=== PATIENT | male | born 1950 | race Caucasian/White ===

== ENCOUNTER → 2017-12-29 10:13 | Outpatient (CLI) | payer OTHER, SELFPAY ==
[2017-12-29 11:34] LABS: BUN Creatinine Ratio 17.5 (6-22); Calcium 8.8 mg/dL (8.4-10.2); Estimated Glomerular Filt Rate > 60.0 mL/min (>60); Glucose 160 mg/dL (80-110); HEMOLYSIS < 15 (0-50); Potassium 4.1 mmol/L (3.4-5.1); Sodium 144 mmol/L (137-145)
== END ==
PROVIDERS: PCP Family Medicine; Visit Provider Specialist
DX: N28.9 Disorder of kidney and ureter, unspecified (principal)
CPT/HCPCS: 36415; 80048

== ENCOUNTER → 2018-01-04 09:59 | Outpatient (CLI) | payer OTHER, SELFPAY ==
--- NOTE | 2018-01-04 | DI.US.S_ITS ---
PROCEDURE: US ARTERIAL DUPLEX UE LT COMPARISON: None. INDICATIONS: ischemic cardiomyopathy FINDINGS: Left subclavian artery shows triphasic 123 cm/s flow and the left axillary artery shows biphasic 104 cm/s flow. The left mid brachial artery shows triphasic 122 cm/s flow and the left distal ulnar artery shows biphasic 32 cm/s flow. The left distal radial artery is not identified. No arterial stenosis is found. IMPRESSION: Nonvisualization of the left distal radial artery. No significant stenosis in the remaining arterial vasculature visualized and discussed above. Dictated by: Josue Varghese M.D. on 01/04/2018 at 14:37 Approved by: Josue Varghese M.D. on 01/04/2018 at 14:40
--- NOTE | 2018-01-04 | DI.US.S_ITS ---
PROCEDURE: US ARTERIAL DUPLEX LE BI INDICATIONS: ischemic cardiomyopathy TECHNIQUE: Color and pulse Doppler interrogation was performed of both lower extremity arterial systems, with image documentation. COMPARISON: [facility] Ul[facility]ound, US, US ARTERY LEG DPLX ILIAC BILAT, 10/09/2015, 10:17. FINDINGS: Right lower extremity: Common femoral artery: 142 cm/sec, with monophasic flow. Deep femoral artery: 122 cm/sec, with monophasic flow. Proximal superficial femoral artery: 126 cm/sec, with monophasic flow. Mid superficial femoral artery: 159 cm/sec, with monophasic flow. Distal superficial femoral artery: 127 cm/sec, with monophasic flow. Popliteal artery: 84 cm/sec, with biphasic flow. Posterior tibial artery: 41 cm/sec, with monophasic flow. Anterior tibial artery/dorsalis pedis: 33 cm/sec, with reverse monophasic flow. Hendrix-scale imaging description: Scattered dense plaque Left lower extremity: Common femoral artery: 240 cm/sec, with biphasic flow. Deep femoral artery: 153 cm/sec, with biphasic flow. Proximal superficial femoral artery: 143 cm/sec, with triphasic flow. Mid superficial femoral artery: 164 cm/sec, with biphasic flow. Distal superficial femoral artery: 146 cm/sec, with biphasic flow. Popliteal artery: 84 cm/sec, with triphasic flow. Posterior tibial artery: 25 cm/sec, with monophasic flow. Anterior tibial artery/dorsalis pedis: 75 cm/sec, with monophasic flow. Hendrix-scale imaging description: Scattered dense plaque IMPRESSION: 1. Monophasic waveforms throughout the right lower extremity raises possibility of more proximal lesion. 2. Reversal of blood flow is noted in the distal right anterior tibial artery. 3. Monophasic waveforms in the runoff vessels of the left leg. 4. Diffusely heavy plaque formation both lower extremities. No focal high grade stenosis identified. Dictated by: Torsten Lerner M.D. on 01/04/2018 at 13:02 Approved by: Torsten Lerner M.D. on 01/04/2018 at 13:09
--- NOTE | 2018-01-05 19:20 | DI.NM.S_ITS ---
DATE OF SERVICE: 01/04/2018 PROCEDURE: Pharmacological perfusion study. INDICATION: Congestive heart failure with ischemic cardiomyopathy, known history of coronary artery disease, bypass surgery, PAD. RADIOPHARMACEUTICAL: 25.6 mCi technetium-99m Myoview IV was injected at stress, and 27.2 mCi technetium-99m Myoview IV was injected at rest. CARDIAC STRESS: Patient underwent IV Lexiscan perfusion study under the supervision of an attending staff as per standard protocol. Patient remained hemodynamically stable. No significant symptoms were reported. Baseline rhythm was sinus with up to [address] depression in inferior leads and lead V3 to V6. Patient also has frequent PVCs with ventricular couplets at rest. During stress, PVCs disappeared. No new significant changes. In recovery, occasional PVCs seen as well. RAW DATA: There appears to be increased subdiaphragmatic activity. GATED STUDY: Resting LV ejection fraction 41%. Stress LV ejection fraction 56%. During stress, I don't see any obvious wall motion abnormalities. Resting end-diastolic volume 136 mL. No transient ischemic dilatation. TID ratio 0.97, which is within normal limits. Lung/heart ratio 0.35, which is within normal limits. MYOCARDIAL PERFUSION: Stress supine, resting supine, and stress prone images were compared to each other. Stress supine and resting supine images revealed small- to moderate-sized mild to moderately decreased perfusion of inferior wall and inferior apex, which got significantly improved during prone images. However, prone images remain to have mildly decreased perfusion of inferior apex. I don't see any reversible ischemia. CONCLUSION: 1. No obvious reversible ischemia. 2. Stress and resting supine images revealed mild to moderately decreased perfusion of inferior wall and inferior apex, which got significantly improved during prone images. Prone images remain to have mildly decreased perfusion of inferior apex. There is a possibility of persistent tissue attenuation artifact; however, cannot rule out the possibility of small inferoapical infarction. Patient had perfusion study in March 2012. At that time also, patient had apical perfusion defect which was kind of fixed. There was no significant reversible perfusion defect at that time. At that time, resting LV ejection fraction was 57 and stress LV ejection fraction 58%. Resting end- diastolic volume 115 mL. In this study, resting end-diastolic volume has increased from 115 mL to 136 mL, and resting LV ejection fraction decreased from 57% to 41%; however, stress LV ejection fraction 56%. Frequent PVCs including ventricular couplets at rest which got suppressed during Lexiscan infusion. Dar Perazaen - ANN/natalie/supriya doc#: [id number]/job#: [id number] dd: 01/05/2018 12:29:00 dt: 01/05/2018 19:12:00 DICTATING /COPIES TO: Greta Montes MD COPIES MNE: HERRERA
== END ==
PROVIDERS: PCP Family Medicine; Visit Provider Specialist
DX: I25.5 Ischemic cardiomyopathy (principal); I50.9 Heart failure, unspecified; I25.10 Atherosclerotic heart disease of native coronary artery without angina pectoris; Z95.1 Presence of aortocoronary bypass graft; I73.9 Peripheral vascular disease, unspecified
CPT/HCPCS: 78452; 93016; 93017; 93018; 93925; 93931; A9502; J2785

== ENCOUNTER → 2018-01-05 09:57 | Outpatient (CLI) | payer OTHER, SELFPAY ==
--- NOTE | 2018-01-05 | DI.US.S_ITS ---
PROCEDURE: US RETRO PERITONEAL LIMITED INDICATIONS: PERIPHERAL ARTERY DISEASE TECHNIQUE: Real time scanning was performed of the aorta and iliac arteries, with image documentation. COMPARISON: [facility], US, ABDOMEN COMPLETE, 06/25/2015, 8:01. FINDINGS: Aorta: Proximal aortic diameter measures 1.8 cm. Mid-aorta measures 1 6 cm. Distal aortic diameter is 1.6 cm. Vascular calcifications indicate atherosclerosis. Iliac arteries: Right common iliac artery measures 1.0 cm. Left common iliac artery measures 1.0 cm. IMPRESSION: No abdominal aortic or proximal common iliac artery aneurysm. Dictated by: Ghassan DIAMOND Interpreted: Anamika Negron MD on 01/05/2018 at 10:52 Approved by: Anamika Negron M.D. on 01/05/2018 at 16:54
== END ==
PROVIDERS: PCP Family Medicine; Visit Provider Specialist
DX: I73.9 Peripheral vascular disease, unspecified (principal)
CPT/HCPCS: 76775

== ENCOUNTER → 2018-02-06 10:39 | Outpatient (CLI) | payer OTHER, SELFPAY ==
[2018-02-06 12:39] LABS: Hemoglobin A1C% w Est Avg Glu 6.2 % (4.0-6.0)
== END ==
PROVIDERS: PCP Family Medicine; Visit Provider Family Medicine
DX: E11.9 Type 2 diabetes mellitus without complications (principal)
CPT/HCPCS: 36415; 83036

== ENCOUNTER → 2018-06-28 08:59 | Outpatient (CLI) | payer OTHER, SELFPAY ==
[2018-06-28 10:03] LABS: Alanine Aminotransferase 26 IU/L (21-72); Albumin Globulin Ratio 1.3 (1.0-2.8); Alkaline Phosphatase 115 U/L (38-126); Aspartate Aminotransferase 18 IU/L (17-59); BUN Creatinine Ratio 16.9 (6-22); Bilirubin Total 0.6 mg/dL (0.2-1.3); Blood Urea Nitrogen 22 mg/dL (9-20); Calcium 8.8 mg/dL (8.4-10.2); Carbon Dioxide 22 mmol/L (22-32); Chloride 107 mmol/L (98-107); Estimated Glomerular Filt Rate 54.7 mL/min (>60); Glucose 161 mg/dL (80-110); HEMOLYSIS < 15 (0-50); Potassium 4.5 mmol/L (3.4-5.1); Sodium 144 mmol/L (137-145)
[2018-07-03 13:12] LABS: Lipoprofile NMR SEE SEPERATE REPORT
== END ==
PROVIDERS: PCP Family Medicine; Visit Provider Specialist
DX: I25.5 Ischemic cardiomyopathy (principal); E78.2 Mixed hyperlipidemia; I10 Essential (primary) hypertension; I49.3 Ventricular premature depolarization; I50.22 Chronic systolic (congestive) heart failure
CPT/HCPCS: 36415; 80053; 83704; 83735; 83880

== ENCOUNTER → 2019-04-19 09:31 | Outpatient (CLI) | payer OTHER, SELFPAY ==
[2019-04-19 10:25] LABS: Alanine Aminotransferase 28 IU/L (21-72); Albumin 3.9 g/dL (3.5-5.0); Albumin Globulin Ratio 1.2 (1.0-2.8); Alkaline Phosphatase 129 U/L (38-126); Aspartate Aminotransferase 26 IU/L (17-59); BUN Creatinine Ratio 11.8 (6-22); Bilirubin Total 0.9 mg/dL (0.2-1.3); Blood Urea Nitrogen 13 mg/dL (9-20); Calcium 8.8 mg/dL (8.4-10.2); Carbon Dioxide 25 mmol/L (22-32); Chloride 104 mmol/L (98-107); Cholesterol 104 mg/dL (140-199); Estimated Glomerular Filt Rate > 60.0 mL/min (>60); Globulin 3.2 g/dL (1.7-4.1); Glucose 150 mg/dL (80-110); HDL Cholesterol 32 mg/dL (40-60); HEMOLYSIS < 15 (0-50); LDL Cholesterol Calculated 41 mg/dL (<100); Magnesium 1.9 mg/dL (1.6-2.3); Potassium 4.2 mmol/L (3.4-5.1); Sodium 140 mmol/L (137-145); Total Protein 7.1 g/dL (6.3-8.2); Triglycerides 154 mg/dL (35-150)
== END ==
PROVIDERS: PCP Family Medicine; Visit Provider Specialist
DX: E78.2 Mixed hyperlipidemia (principal); I10 Essential (primary) hypertension; I49.3 Ventricular premature depolarization
CPT/HCPCS: 36415; 80053; 80061; 83735

== ENCOUNTER → 2019-05-28 10:49 | Outpatient (CLI) | payer OTHER, SELFPAY ==
[2019-05-28 12:20] LABS: Hemoglobin A1C% w Est Avg Glu 6.2 % (4.0-6.0)
[2019-05-28 15:15] LABS: Creatinine Urine Random 137.9 mg/dL
[2019-05-28 15:19] LABS: Microalbumi Creatinin Ratio Ur 17.4 ug/mg CR (<30); Microalbumin Urine Random 2.4 mg/dL (0-1.6)
== END ==
PROVIDERS: PCP Family Medicine; Visit Provider Family Medicine
DX: E11.9 Type 2 diabetes mellitus without complications (principal)
CPT/HCPCS: 36415; 82043; 82570; 83036

== ENCOUNTER 2019-10-16 16:42 | Emergency (ER) | payer OTHER, SELFPAY ==
[2019-10-16 17:02] VITALS: BP 114/56; PULSE 56; RESP 13; TEMP 35.9; O2SAT 97
--- NOTE | 2019-10-16 17:32 | DI.RAD.S_ITS ---
PROCEDURE: XR CHEST 2V INDICATIONS: fatigue, cough, congestion TECHNIQUE: 2 views of the chest were acquired. COMPARISON: [facility], , CHEST 1 VIEW, 03/11/2016, 19:19. FINDINGS: Surgical changes and devices: Multiple median sternotomy wires are intact. Stent device noted in the medial left apex. Lungs and pleura: Patchy opacity noted in the right midlung zone. Remainder of the visualized lungs appear clear. No pleural effusions or pneumothorax. Mediastinum: Mediastinal contours are normal. Heart size is normal. Bones and chest wall: No suspicious bony abnormalities. Soft tissues appear unremarkable. IMPRESSION: Patchy right midlung zone opacity possibly representing early developing airspace disease/pneumonia. Recommend follow up chest radiograph 4-6 weeks after treatment to document resolution of findings and/or return to baseline examination. Dictated by: Elroy Cervantes M.D. on 10/16/2019 at 18:17 Approved by: Elroy Cervantes M.D. on 10/16/2019 at 18:18
[2019-10-16 18:13] LABS: Add Manual Diff / Slide Review NO; Basophils Absolute Auto 200 /uL (0-100); Basophils Percent Auto 1.2 % (0-2); Eosinophils Absolute Auto 100 /uL (0-450); Hematocrit 48.7 % (41-53); Hemoglobin 16.6 g/dL (13.5-17.5); Lymphocytes Absolute Auto 2600 /uL (1100-4500); Lymphocytes Percent Auto 19.2 % (25-40); Mean Corpuscular HGB Conc 34.1 % (30-36); Mean Corpuscular Hemoglobin 30.5 PG (26-34); Mean Corpuscular Volume 89.4 fL (80-100); Monocytes Absolute Auto 1100 /uL (0-900); Monocytes Percent Auto 7.6 % (3-14); Neutrophils Absolute Auto 9800 /uL (1500-7000); Platelet Count 280 X10^3/uL (150-400); Red Blood Cell Count 5.45 X10^6/uL (4.5-5.9); Red Cell Distribution Width 14.2 % (11.6-14.8); White Blood Cell Count 13.8 X10^3/uL (4.5-11.0)
--- NOTE | 2019-10-16 18:24 | ED.WEAKNESS ---
HPI - Weakness <JOHN Woody - Last Filed: 10/16/19 21:31> General Chief complaint: Weakness Stated complaint: not felt well for 17 days Time Seen by Provider: 10/16/19 17:10 Source: patient Mode of arrival: Ambulatory Limitations: no limitations History of Present Illness HPI Narrative: This is a 69 year-old male, some day smoker, who presents to ED with his son with chief complain of right ear pain and right-sided sore throat for 17 days. Son states he is not wanting to see doctors and is stubborn. Patient reports he had moist cough which is actually improving at this time. Patient denies fever, chills, nausea or vomiting. Patient reports has been hydrating with about a gallon water a day but he has decreased appetite for solid foods and food does not taste good for last 3 days. Patient states no stool for last 3 days. Patient denies chest pain, short of breath and reports difficulty sleeping at night from coughing and congestion. Patient had pneumonia about a year ago. Patient denies exposure to illness, recent foreign travel, and did not receive flu immunization this year. Related Data Home Medications Medication Instructions Recorded Confirmed amlodipine 5 mg PO QAM 10/16/19 10/16/19 carvedilol 25 mg PO BID 10/16/19 10/16/19 clopidogrel 75 mg PO QPM 10/16/19 10/16/19 lisinopril 20 mg PO BID 10/16/19 10/16/19 rosuvastatin 20 mg PO DAILY 10/16/19 10/16/19 Previous Rx's Medication Instructions Recorded azithromycin 250 mg PO DAILY 5 Days #6 tab 10/16/19 Allergies Allergy/AdvReac Type Severity Reaction Status Date / Time No Known Drug Allergies Allergy Verified 10/16/19 17:11 Review of Systems <JOHN Woody - Last Filed: 10/16/19 21:31> Review of Systems Narrative: General: Denies fever, chills, fatigue, (+) malaise, sweats. HEENT: Denies sinus pain, (+) Right ear pain, (+) Right side sore throat, difficulty swallowing, dizziness. Respiratory: Denies dyspnea, (+) moist cough, wheezing, hemoptysis, sputum. Cardiovascular: Denies chest pain, palpitations, orthopnea, edema. Gastrointestinal: Denies nausea, vomiting, abdominal pain, diarrhea, constipation, melena. : Denies dysuria, frequency, incontinence, hematuria, urinary retention. Musculoskeletal: Denies weakness, joint pain or bony pain. Skin: Denies rash, skin lesions, or other. Neurologic: Denies weakness, headache, numbness, change in speech, confusion, seizures, incoordination. Psychiatric: No concerning psychosocial issues. 12-point review of systems is negative except for those stated above. Patient History <JOHN Woody - Last Filed: 10/16/19 21:31> Medical History (Updated 10/16/19 @ 21:12 by JOHN Woody) Carotid artery narrowing (Acute) Hyperlipidemia (Acute) Hypertension (Acute) Pneumonia (Acute) Surgical History (Updated 10/16/19 @ 20:03 by JOHN Woody) H/O carotid endarterectomy (Acute) H/O eye surgery (Acute) H/O vasectomy (Acute) History of heart bypass surgery (Acute) Status post coronary artery bypass graft Social History Smoking Status: Current some day smoker Smoking Status: Current every day smoker Substance Use Type: does not use Exam <JOHN Woody - Last Filed: 10/16/19 21:31> Narrative Exam Narrative: GEN: Alert, oriented x 3, thin appearing and in no acute distress. Head: Normal cephalic, atraumatic. No scalp or temporal tenderness, palpable mass or rash. EYES: Pupils, round, and reactive to light and accommodation. Misaligned pupil on left eye. Extraocular muscles are intact bilaterally. There is no subconjunctival hemorrhage, exudate and sclera non-icteric. ENT: Right auditory canals semi occuluded purulent discharge with erythmatous, dull TM. Left tympanic membranes clear. Right Hearing grossly intact. Nose without bleeding, purulent discharge or deviation. Facial sinuses nontender to palpate. Mucous membrane dry, no mucosal lesion. Throat without erythema, tonsillar hypertrophy or exudate but postnasal drips. Uvula in midline, airway patent. Neck: Trachea in midline. No JVD, non-tender without lymphadenopathy. No masses or thyroid megaly. Supple, non-tender and no meningeal signs. CARDIAC: Normal regular rate and rhythm without murmurs, gallops, or rubs. No chest wall tenderness. No peripheral edema, cyanosis or pallor. Capillary refill is less than 2 seconds. RESPIRATORY: Lungs are clear to auscultate bilaterally. No cough, wheezes, rales, or rhonchi. No stridor, respiratory distress, increase work of breathing, or accessary muscle used. ABD: Abdomen soft, nontender and non-distended. No guarding or rebound tenderness to palpate. Bowel sounds are normal in all 4 quadrants. There is no palpable masses or organomegaly. EXT: Full painless ROM of all extremities with no loss of sensation, strength, effusion or edema. SKIN: Warm, dry, normal color for patient. No erythema, lesions or rash over visible areas. BACK: Nontender without deformity or crepitance. No flank tenderness. NEUROLOGICAL: Alert and oriented to place, time and person. Sensation and motor function intact bilaterally. No facial droops, dysphasia. PSYCHIATRIC: Good judgement and reason, without hallucinations, abnormal affect or abnormal behaviors during the examination. Initial Vital Signs Initial Vital Signs: Vital Signs Temperature 96.7 F L 10/16/19 17:02 Pulse Rate 56 L 10/16/19 17:02 Respiratory Rate 13 10/16/19 17:02 Blood Pressure 114/56 L 10/16/19 17:02 Pulse Oximetry 97 10/16/19 17:02 <Supriya Tolliver DO - Last Filed: 10/17/19 03:36> Initial Vital Signs Initial Vital Signs: Vital Signs Temperature 96.7 F L 10/16/19 17:02 Pulse Rate 56 L 10/16/19 17:02 Respiratory Rate 13 10/16/19 17:02 Blood Pressure 114/56 L 10/16/19 17:02 Pulse Oximetry 97 10/16/19 17:02 Scores <JOHN Woody - Last Filed: 10/16/19 21:31> GCS [place] coma scale eye opening: Spontaneous [place] coma scale verbal response: Orientated Eleanor coma scale motor response: Obey commands Eleanor coma scale total score: 15 Course <JOHN Woody - Last Filed: 10/16/19 21:31> Orders Ordered: Discontinued Medications Sodium Chloride (Normal Saline 0.9%) 500 mls @ 1,000 mls/hr IV BOLUS ONE Stop: 10/16/19 18:01 Last Admin: 10/16/19 19:29 Dose: 1,000 mls/hr Documented by: CVANCE Ceftriaxone Sodium/Dextrose (Rocephin) 1 gm in 50 mls @ 100 mls/hr IV NOW ONE Stop: 10/16/19 19:18 Last Admin: 10/16/19 19:29 Dose: 100 mls/hr Documented by: CVANCE Vital Signs Vital signs: Vital Signs - 8 hr 10/16/19 19:42 Temperature 97.5 F L Pulse Rate 53 L Respiratory Rate 16 Blood Pressure [Left Arm] 129/64 <Supriya Tolliver DO - Last Filed: 10/17/19 03:36> Orders Ordered: Discontinued Medications Sodium Chloride (Normal Saline 0.9%) 500 mls @ 1,000 mls/hr IV BOLUS ONE Stop: 10/16/19 18:01 Last Admin: 10/16/19 19:29 Dose: 1,000 mls/hr Documented by: CVANCE Ceftriaxone Sodium/Dextrose (Rocephin) 1 gm in 50 mls @ 100 mls/hr IV NOW ONE Stop: 10/16/19 19:18 Last Admin: 10/16/19 19:29 Dose: 100 mls/hr Documented by: CVANCE Vital Signs Vital signs: Vital Signs - 8 hr 10/16/19 19:42 Temperature 97.5 F L Pulse Rate 53 L Respiratory Rate 16 Blood Pressure [Left Arm] 129/64 MDM - Weakness <JOHN Woody - Last Filed: 10/16/19 21:31> Differential Diagnosis Differential diagnosis: Likely anemia, dehydration and other (Electrolyte imbalance, pneumonia, strep throat, UR infection) Medical Records Attestation: I reviewed the patient's medical records. Lab Data Attestation: I reviewed the patient's lab results. Result diagrams: 10/16/19 18:00 10/16/19 18:00 Labs: Lab Results 10/16/19 10/16/19 Range/Units 18:00 18:00 WBC 13.8 H (4.5-11.0) X10^3/uL RBC 5.45 (4.5-5.9) X10^6/uL Hgb 16.6 (13.5-17.5) g/dL Hct 48.7 (41-53) % MCV 89.4 (80-100) fL MCH 30.5 (26-34) PG MCHC 34.1 (30-36) % RDW 14.2 (11.6-14.8) % Plt Count 280 (150-400) X10^3/uL Neut % (Auto) 71.0 (50-75) % Lymph % (Auto) 19.2 L (25-40) % [place] % (Auto) 7.6 (3-14) % Eos % (Auto) 1.0 L (2-4) % Baso % (Auto) 1.2 (0-2) % Neut # (Auto) 9800 H (5385-0771) /uL Lymph # (Auto) 2600 (5031-6906) /uL [place] # (Auto) 1100 H (0-900) /uL Eos # (Auto) 100 (0-450) /uL Baso # (Auto) 200 H (0-100) /uL Sodium 136 L (137-145) mmol/L Potassium 5.1 (3.4-5.1) mmol/L Chloride 101 (98-107) mmol/L Carbon Dioxide 21 L (22-32) mmol/L BUN 49 H (9-20) mg/dL Creatinine 1.55 H (0.66-1.25) mg/dL Estimated GFR 44.5 L (>60) mL/min BUN/Creatinine Ratio 31.6 H (6-22) Glucose 159 H (80-110) mg/dL Calcium 9.0 (8.4-10.2) mg/dL Total Bilirubin 1.4 H (0.2-1.3) mg/dL AST 26 (17-59) IU/L ALT 16 (<50) IU/L Alkaline Phosphatase 102 (38-126) U/L Total Protein 8.3 H (6.3-8.2) g/dL Albumin 4.2 (3.5-5.0) g/dL Globulin 4.1 (1.7-4.1) g/dL Albumin/Globulin Ratio 1.0 (1.0-2.8) Point of Care Testing Rapid Strep A Negative Urine Dip Bedside Urine Glucose 100 mg/dl Bedside Urine Bilirubin - Negative Bedside Urine Ketone - Negative Urine Specific [place] 1.030 Bedside Urine Occult Blood - Negative Bedside Urine pH 5.5 Bedside Urine Protein +/- 15 Bedside Urine Urobilinogen - Negative Bedside Urine Nitrite - Negative Bedside Urine Leukocytes - Negative Esterase Imaging Data Chest x-ray: Radiologist Impression: [place] [id number] [place] [id number] XRay Report Signed Patient: Frankie Peraza [facility]#: [id number] : 9Acct:[id number] Age/Sex: 69 / MDate of Service: 10/16/19 Loc: ED Accession Number: [id number] Procedure: XR chest 2V Ordering Provider: Lonnie Ruiz PROCEDURE: XR CHEST 2V INDICATIONS: fatigue, cough, congestion TECHNIQUE: 2 views of the chest were acquired. COMPARISON: [facility], CHEST 1 VIEW, 03/11/2016, 19:19. FINDINGS: Surgical changes and devices: Multiple median sternotomy wires are intact. Stent device noted in the medial left apex. Lungs and pleura: Patchy opacity noted in the right midlung zone. Remainder of the visualized lungs appear clear. No pleural effusions or pneumothorax. Mediastinum: Mediastinal contours are normal. Heart size is normal. Bones and chest wall: No suspicious bony abnormalities. Soft tissues appear unremarkable. IMPRESSION: Patchy right midlung zone opacity possibly representing early developing airspace disease/pneumonia. Recommend follow up chest radiograph 4-6 weeks after treatment to document resolution of findings and/or return to baseline examination. Dictated by: Elroy Cervantes M.D. on 10/16/2019 at 18:17 Approved by: Elroy Cervantes M.D. on 10/16/2019 at 18:18 [facility] Narrative Medical decision making narrative: This is a 69-year-old male who presents to ED with son with chief complain of right side ear pain, sore throat, cough without chest pain, breathing difficulty. Patient denies fever, chills, nausea or vomiting but has decreased appetite for solid foods for last 3 days. Patient had mildly elevated white count of 13.8 with neutrophils# [id number]. Sodium was mildly decreased to 136. Chemistry test exhibits dehydration. BUN is a 49 and BUN/Cr ratio of 31.6. The patient's baseline creatinine level in the past for 1.3 and today it has increased to 1.55. Likely this is due to patient's dehydration status. Patient has elevated blood glucose of 159. Strep throat swab was negative. Chest x-ray shows patchy opacity noted in the right mid lung zone representing early developing airspace disease/pneumonia. Patient's physical exam showed postnasal drips with right ear injection, purulent discharge consistent with otitis media. Patient was hydrated with normal saline 500 mL and administered Rocephin 1 g IV while in ED. patient was able to tolerate fluids without nausea or vomiting. Patient discharged to home with azithromycin 5 day course to cover pneumonia and ear infection and to hydrate adequately. Patient advised to follow up with PCP in 24 hour period to have kidney function test recheck it. Strict return precautions were discussed with the patient and patient verbalized understanding and in agreement with the treatment plan. <Supriya Tolliver, DO - Last Filed: 10/17/19 03:36> Lab Data Labs: Lab Results 10/16/19 10/16/19 Range/Units 18:00 18:00 WBC 13.8 H (4.5-11.0) X10^3/uL RBC 5.45 (4.5-5.9) X10^6/uL Hgb 16.6 (13.5-17.5) g/dL Hct 48.7 (41-53) % MCV 89.4 (80-100) fL MCH 30.5 (26-34) PG MCHC 34.1 (30-36) % RDW 14.2 (11.6-14.8) % Plt Count 280 (150-400) X10^3/uL Neut % (Auto) 71.0 (50-75) % Lymph % (Auto) 19.2 L (25-40) % [place] % (Auto) 7.6 (3-14) % Eos % (Auto) 1.0 L (2-4) % Baso % (Auto) 1.2 (0-2) % Neut # (Auto) 9800 H (3686-4816) /uL Lymph # (Auto) 2600 (5643-1140) /uL [place] # (Auto) 1100 H (0-900) /uL Eos # (Auto) 100 (0-450) /uL Baso # (Auto) 200 H (0-100) /uL Sodium 136 L (137-145) mmol/L Potassium 5.1 (3.4-5.1) mmol/L Chloride 101 (98-107) mmol/L Carbon Dioxide 21 L (22-32) mmol/L BUN 49 H (9-20) mg/dL Creatinine 1.55 H (0.66-1.25) mg/dL Estimated GFR 44.5 L (>60) mL/min BUN/Creatinine Ratio 31.6 H (6-22) Glucose 159 H (80-110) mg/dL Calcium 9.0 (8.4-10.2) mg/dL Total Bilirubin 1.4 H (0.2-1.3) mg/dL AST 26 (17-59) IU/L ALT 16 (<50) IU/L Alkaline Phosphatase 102 (38-126) U/L Total Protein 8.3 H (6.3-8.2) g/dL Albumin 4.2 (3.5-5.0) g/dL Globulin 4.1 (1.7-4.1) g/dL Albumin/Globulin Ratio 1.0 (1.0-2.8) Point of Care Testing Rapid Strep A Negative Urine Dip Bedside Urine Glucose 100 mg/dl Bedside Urine Bilirubin - Negative Bedside Urine Ketone - Negative Urine Specific [place] 1.030 Bedside Urine Occult Blood - Negative Bedside Urine pH 5.5 Bedside Urine Protein +/- 15 Bedside Urine Urobilinogen - Negative Bedside Urine Nitrite - Negative Bedside Urine Leukocytes - Negative Esterase Discharge Plan Departure Patient Disposition: Home Clinical Impression: Dehydration, Acute kidney injury Pneumonia Qualifiers: Pneumonia type: due to unspecified organism Laterality: right Lung location: middle lobe of lung Qualified Code(s): J18.9 - Pneumonia, unspecified organism Otitis media Qualifiers: Otitis media type: unspecified Laterality: right Qualified Code(s): H66.91 - Otitis media, unspecified, right ear Discharge Date/Time: 10/16/19 21:40 Instructions: DI for Dehydration -- Adult, DI for Pneumonia -- Adult, DI for Middle Ear Infection-Adult, DI for Acute Kidney Injury Activity Restrictions/Additional Instructions: You have been diagnosed with [chest x-ray shows in right midlung zone patchy opacity. Physical exam on right ear indicates ear infection. White count of 13.8. Chemistry test indicates you were dehydrated. Your hydrated with IV fluid of normal saline while in ED and medicated with Rocephin IV for antibiotic medication. Your kidney function has decreased as compared with previous blood tests. Please follow-up with your doctor in 24 hour period for recheck on kidney function test. BUN is 49, Creatine 1.55, GFR of 44.5, and elevated glucose of 159. Strep throat test was negative and urine test indicates no infection.]. What to do: *Take your medications as directed. Please start on your antibiotic medication tomorrow 2 tabs 1st day and 1 tab daily from day 2-5. You can take Tylenol if you have fever or discomfort. Please increases hydration. Eat something is a to digest even though you may not have much appetite. Antibiotic medication has been transmitted to [employer] in [facility]. *Follow up with your primary care provider in 2-3 days, call for an appointment. Let them know you were seen in the ED and that we asked you to be seen in follow up. *Return to ED if you have any new, worsening, or concerning symptoms, such as [chest pain, breathing difficulty, unable to tolerate fluids, high fever, or any acute concerns]. Prescriptions: New azithromycin 250 mg tablet 250 mg PO DAILY 5 Days Qty: 6 RF: 0 No Action carvedilol 25 mg tablet 25 mg PO BID RF: 0 lisinopril 20 mg tablet 20 mg PO BID RF: 0 clopidogrel 75 mg tablet 75 mg PO QPM RF: 0 amlodipine 5 mg Tablet 5 mg PO QAM RF: 0 rosuvastatin 20 mg tablet 20 mg PO DAILY RF: 0 Referrals: Finesse Levine MD [Primary Care Provider] -
[2019-10-16 18:32] LABS: Alanine Aminotransferase 16 IU/L (<50); Albumin 4.2 g/dL (3.5-5.0); Alkaline Phosphatase 102 U/L (38-126); Aspartate Aminotransferase 26 IU/L (17-59); BUN Creatinine Ratio 31.6 (6-22); Bilirubin Total 1.4 mg/dL (0.2-1.3); Blood Urea Nitrogen 49 mg/dL (9-20); Carbon Dioxide 21 mmol/L (22-32); Chloride 101 mmol/L (98-107); Estimated Glomerular Filt Rate 44.5 mL/min (>60); Globulin 4.1 g/dL (1.7-4.1); Glucose 159 mg/dL (80-110); Sodium 136 mmol/L (137-145); Total Protein 8.3 g/dL (6.3-8.2)
[2019-10-16 18:33] LABS: HEMOLYSIS 87 (0-50); Potassium 5.1 mmol/L (3.4-5.1)
[2019-10-16] MEDS: SODIUM CHLORIDE 0.9% 500 ML 1000 ML IV (19:29)
[2019-10-16] MEDS: CEFTRIAXONE 1 GM/50 ML FROZ.PIGGY IV (19:29)
[2019-10-16 19:42] VITALS: BP 129/64; PULSE 53; RESP 16; TEMP 36.4
--- NOTE | 2019-11-21 10:46 | PC.NURSE ---
ON 10/15 Rocephin antibiotic started at 18:49 and stopped at 1919 50cc infused. Also on 10/15 Normal saline IV started at 17:32 and finished at 1810 for a total of 500cc infusion
== END 2019-10-16 21:40 | disposition home or self-care (01) ==
PROVIDERS: Emergency Provider Nurse Practitioner Family; PCP Family Medicine; Referring Provider Family Medicine
DX: E86.0 Dehydration (principal); N17.9 Acute kidney failure, unspecified; J18.9 Pneumonia, unspecified organism; H66.91 Otitis media, unspecified, right ear
CPT/HCPCS: 71046; 80053; 81003; 85025; 87880; 96361; 96365; 99283; 99284

== ENCOUNTER → 2019-10-22 14:21 | Outpatient (CLI) | payer OTHER, SELFPAY ==
[2019-10-22 15:29] LABS: Add Manual Diff / Slide Review NO; Basophils Absolute Auto 100 /uL (0-100); Basophils Percent Auto 0.4 % (0-2); Eosinophils Absolute Auto 100 /uL (0-450); Eosinophils Percent Auto 0.8 % (2-4); Hematocrit 47.5 % (41-53); Lymphocytes Absolute Auto 2900 /uL (1100-4500); Lymphocytes Percent Auto 20.2 % (25-40); Mean Corpuscular HGB Conc 33.8 % (30-36); Mean Corpuscular Hemoglobin 30.3 PG (26-34); Mean Corpuscular Volume 89.7 fL (80-100); Monocytes Absolute Auto 1000 /uL (0-900); Monocytes Percent Auto 6.8 % (3-14); Neutrophils Absolute Auto 10300 /uL (1500-7000); Neutrophils Percent Auto 71.8 % (50-75); Platelet Count 373 X10^3/uL (150-400); Red Cell Distribution Width 14.1 % (11.6-14.8); White Blood Cell Count 14.3 X10^3/uL (4.5-11.0)
[2019-10-22 15:45] LABS: BUN Creatinine Ratio 25.3 (6-22); Blood Urea Nitrogen 39 mg/dL (9-20); Calcium 9.3 mg/dL (8.4-10.2); Carbon Dioxide 19 mmol/L (22-32); Chloride 100 mmol/L (98-107); Estimated Glomerular Filt Rate 44.9 mL/min (>60); Glucose 155 mg/dL (80-110); HEMOLYSIS < 15 (0-50); Potassium 4.9 mmol/L (3.4-5.1); Sodium 132 mmol/L (137-145)
== END ==
PROVIDERS: PCP Family Medicine; Referring Provider Family Medicine; Visit Provider Family Medicine
DX: I10 Essential (primary) hypertension (principal); E11.9 Type 2 diabetes mellitus without complications
CPT/HCPCS: 36415; 80048; 85025

== ENCOUNTER → 2019-10-23 17:15 | Outpatient (CLI) | payer OTHER, SELFPAY ==
--- NOTE | 2019-10-23 | DI.RAD.S_ITS ---
PROCEDURE: XR CHEST 2V INDICATIONS: Right middle lobe pneumonia TECHNIQUE: 2 views of the chest were acquired. COMPARISON: [facility], [place], CHEST 1 VIEW, 03/11/2016, 19:19. [facility], [place], XR CHEST 2V, 10/16/2019, 17:35. FINDINGS: Surgical changes and devices: Sternal wires consistent with prior bypass procedure. Lungs and pleura: Unchanged opacity overlying the right middle lobe, unchanged. No pleural effusions or pneumothorax. Mediastinum: Mediastinal contours are normal. Heart size is enlarged. Bones and chest wall: No suspicious bony abnormalities. Soft tissues appear unremarkable. IMPRESSION: Unchanged right middle lobe opacity. While this could be reflective of inflammatory etiology, recommend interval followup to document resolution and exclude presence of potentially underlying neoplastic mass. Dictated by: Luann Nagel M.D. on 10/24/2019 at 9:23 Approved by: Luann Nagel M.D. on 10/24/2019 at 9:28
== END ==
PROVIDERS: PCP Family Medicine; Referring Provider Family Medicine; Visit Provider Family Medicine
DX: J18.1 Lobar pneumonia, unspecified organism (principal)
CPT/HCPCS: 71046

== ENCOUNTER 2020-05-29 21:19 | Emergency (ER) | payer OTHER, SELFPAY ==
[2020-05-29 21:35] VITALS: BP 189/96; PULSE 82; RESP 16; TEMP 36.6; O2SAT 97; BMI 25.8
[2020-05-29 21:45] LABS: Appearance Urine UA CLEAR; Bilirubin Urine UA 1+ (NEGATIVE); Color Urine UA YELLOW; Glucose Urine UA NEGATIVE (Negative); Ketones Urine UA TRACE (NEGATIVE); Leukocyte Esterase Urine UA NEGATIVE (NEGATIVE); Nitrite Urine UA NEGATIVE (Negative); Occult Blood Urine UA TRACE-LYSED (Negative); Protein Urine UA 1+ (Negative); Specific Gravity Urine UA >=1.030 (1.000-1.035); Urobilinogen Urine UA 0.2 E.U./dL (0.2)
--- NOTE | 2020-05-29 21:47 | ED_ITS ---
HPI - Abdominal Pain General Chief Complaint: Abdominal Pain Stated Complaint: abdominal and back pain Time Seen by Provider: 05/29/20 21:22 Source: patient Mode of arrival: Ambulatory Limitations: no limitations History of Present Illness HPI narrative: 70M smoker with history of HTN, PAD, hyperlipidemia and prior inguinal hernia repair presents with the chief complaint of abdominal pain, nausea, and malaise for the past 3-4 days. His pain comes in waves without obvious provocation or palliation, but he does admit it radiates to his back. He has frequent urination. He denies testicular pain, but admits swelling since a difficult course after inguinal hernia repair. He's had no fever, chills, or vomiting. He does feel nauseated. MD complaint: abdominal pain Onset (ago): day(s) Pain Consistency: intermittent Location: periumbilical Severity: moderate Quality: cramping Radiation: back Relieving factors: nothing Exacerbating factors: nothing Associated symptoms: nausea Related Data Home Medications Medication Instructions Recorded Confirmed amlodipine 5 mg PO QAM 10/16/19 10/16/19 carvedilol 25 mg PO BID 10/16/19 10/16/19 clopidogrel 75 mg PO QPM 10/16/19 10/16/19 lisinopril 20 mg PO BID 10/16/19 10/16/19 rosuvastatin 20 mg PO DAILY 10/16/19 10/16/19 Previous Rx's Medication Instructions Recorded ondansetron 4 mg PO TID-QID PRN #10 tab 05/30/20 oxycodone 5 mg PO Q4-6H PRN #10 tab 05/30/20 Allergies Allergy/AdvReac Type Severity Reaction Status Date / Time No Known Drug Allergies Allergy Verified 05/29/20 21:45 Review of Systems Constitutional Constitutional: Denies chills, Denies fatigue, Denies fever(s), Denies frequent falls, Denies lethargy and Denies weakness Eyes Eyes: Denies change in vision, Denies eye discharge, Denies irritation and Denies loss of vision ENT Ears, Nose, Mouth, and Throat: Denies change in voice, Denies dizziness, Denies neck pain, Denies sore throat and Denies throat swelling Cardiovascular Cardiovascular: Denies chest pain, Denies irregular heart rhythm, Denies lightheadedness, Denies palpitations, Denies dyspnea, Denies dyspnea on exertion and Denies orthopnea Respiratory Respiratory: Denies cough, Denies dyspnea, Denies dyspnea on exertion and Denies wheezing Gastrointestinal Gastrointestinal: Reports abdominal pain, Denies change in bowel habits, Denies diarrhea, Reports nausea and Denies vomiting Genitourinary Genitourinary: Reports urinary frequency Genitourinary: Reports urinary frequency Musculoskeletal Musculoskeletal: Denies neck pain and Denies numbness Integumentary/Breasts Skin/Breast: Denies pruritus, Denies erythema, Denies rash and Denies wounds Neurologic Neurologic: Denies behavioral changes, Denies confusion, Denies dizziness, Denies frequent falls, Denies loss of vision, Denies numbness and Denies weakness Psychiatric Psychiatric: Denies anxiety, Denies behavioral changes, Denies confusion, Denies depression, Denies homicidal ideation and Denies suicidal ideation Endocrine Endocrine: Denies fatigue, Denies flushing and Denies palpitations Hematologic/Lymphatic Hematologic/Lymphatic: Denies easy bruising Allergic/Immunologic Allergic/Immunologic: Denies urticaria, Denies throat swelling and Denies wheezing Patient History Medical History Carotid artery narrowing (Acute) Hyperlipidemia (Acute) Hypertension (Acute) Pneumonia (Acute) Surgical History H/O carotid endarterectomy (Acute) H/O eye surgery (Acute) H/O vasectomy (Acute) History of heart bypass surgery (Acute) Status post coronary artery bypass graft Social History Smoking Status: Current some day smoker Smoking Status: Current some day smoker Substance Use Type: does not use Exam Narrative Exam Narrative: GENERAL: [70] year old patient appears stated age. Well- nourished, well-developed patient, in mild distress. HEAD: Atraumatic. Normocephalic. EYES: Pupils equal round and reactive. Extraocular motions intact. No scleral icterus. No injection or drainage. ENT: Nose without bleeding, purulent drainage. Throat without erythema, to nsillar hypertrophy or exudate. Airway patent. NECK: Trachea midline. Non tender CARDIOVASCULAR: Regular rate and rhythm without murmurs, gallops, or rubs. RESPIRATORY: Clear to auscultation. Breath sounds equal bilaterally. No wheezes, rales, or rhonchi. GASTROINTESTINAL: Abdomen soft, moderate tenderness in the periumbilical region, nondistended. Bowel sounds present in all 4 quadrants : No testicular pain, discoloration EXTREMITIES: No edema or joint tenderness. BACK: Nontender without deformity or crepitance. No flank tenderness. NEURO: AOx3. SKIN: No rash or erythema of visible areas Initial Vital Signs Initial Vital Signs: Vital Signs Temperature 97.9 F 05/29/20 21:35 Pulse Rate 82 05/29/20 21:35 Respiratory Rate 16 05/29/20 21:35 Blood Pressure 189/96 H 05/29/20 21:35 Pulse Oximetry 97 05/29/20 21:35 Course Orders Ordered: ED Orders 05/29/20 21:39 Ictotest Urine Stat Urinalysis and Microscopic Stat 05/29/20 21:49 EKG-12 Lead Stat 05/29/20 22:15 Complete Blood Count AUTO DIFF Stat Comprehensive Metabolic Panel Stat Lipase Stat Partial Thromboplastin Time Stat Prothrombin Time INR Stat 05/29/20 23:02 CT abdomen pelvis w con Stat 05/30/20 00:08 Prostate Specific Antigen Stat 05/30/20 23:45 US abdomen limited Stat Discontinued Medications Sodium Chloride (Normal Saline 0.9%) 1,000 mls @ 1,000 mls/hr IV BOLUS ONE Stop: 05/30/20 00:00 Last Infusion: 05/30/20 00:25 Dose: 0 mls/hr Documented by: Admin: 05/29/20 23:16 Dose: 1,000 mls/hr Documented by: SHARONDA Ketorolac Tromethamine (Toradol) 15 mg IV NOW ONE Stop: 05/29/20 23:02 Last Admin: 05/29/20 23:15 Dose: 15 mg Documented by: SHARONDA Lidocaine HCl (Urojet) 5 ml TOP NOW ONE Stop: 05/30/20 01:22 Last Admin: 05/30/20 02:04 Dose: 5 ml Documented by: SHARONDA Ondansetron HCl (Zofran) 4 mg IV Q4HR PRN PRN Reason: Nausea And Vomiting Last Admin: 05/29/20 23:16 Dose: 4 mg Documented by: SHARONDA Oxycodone/Acetaminophen (Endocet 5/325 Prepack) 1 bottle MISC SEEINSTR ONE Stop: 05/30/20 02:08 Last Admin: 05/30/20 02:27 Dose: 1 bottle Documented by: SHARONDA Pantoprazole Sodium (Protonix) 40 mg IV NOW ONE Stop: 05/29/20 23:03 Last Admin: 05/29/20 23:15 Dose: 40 mg Documented by: SHARONDA Prednisone (Deltasone) 40 mg PO NOW ONE Stop: 05/29/20 23:02 Last Admin: 05/29/20 23:14 Dose: Not Given Documented by: SHARONDA Consultations Consultation #1: upon completion of evaluation, call placed to public information specialist urology at (Dr. Galindo) to discuss CT findings, enlarged prostate infiltrating bladder and post void residual >300. She states no contraindication to use of smith. Recommends pain control and follow up with local urology. Vital Signs Vital signs: Vital Signs - 8 hr 05/29/20 21:35 05/30/20 02:29 05/30/20 02:30 Temperature 97.9 F Pulse Rate 82 88 87 Respiratory Rate 16 Blood Pressure 189/96 H 175/81 H Pulse Oximetry 97 94 97 05/30/20 02:49 Temperature 98.2 F Pulse Rate Respiratory Rate Blood Pressure Pulse Oximetry MDM - Abdominal Pain Lab Data Result diagrams: 05/29/20 22:15 05/29/20 22:15 Labs: Lab Results 05/29/20 05/29/20 05/29/20 Range/Units 21:39 22:15 22:15 WBC 15.6 H (4.5-11.0) X10^3/uL RBC 4.90 (4.5-5.9) X10^6/uL Hgb 15.3 (13.5-17.5) g/dL Hct 44.6 (41-53) % MCV 91.2 (80-100) fL MCH 31.3 (26-34) PG MCHC 34.3 (30-36) % RDW 15.2 H (11.6-14.8) % Plt Count 198 (150-400) X10^3/uL Neut % (Auto) 76.9 H (50-75) % Lymph % (Auto) 12.4 L (25-40) % [place] % (Auto) 9.5 (3-14) % Eos % (Auto) 0.5 L (2-4) % Baso % (Auto) 0.7 (0-2) % Neut # (Auto) 45885 H (5946-3321) /uL Lymph # (Auto) 1900 (5999-4271) /uL [place] # (Auto) 1500 H (0-900) /uL Eos # (Auto) 100 (0-450) /uL Baso # (Auto) 100 (0-100) /uL PT 12.6 (10.1-12.7) SECONDS INR 1.1 (0.9-1.3) APTT 28 (26.4-36.2) SECONDS Sodium (137-145) mmol/L Potassium (3.4-5.1) mmol/L Chloride (98-107) mmol/L Carbon Dioxide (22-32) mmol/L BUN (9-20) mg/dL Creatinine (0.66-1.25) mg/dL Estimated GFR (>60) mL/min BUN/Creatinine Ratio (6-22) Glucose (80-110) mg/dL Calcium (8.4-10.2) mg/dL Total Bilirubin (0.2-1.3) mg/dL AST (17-59) IU/L ALT (<50) IU/L Alkaline Phosphatase (38-126) U/L Total Protein (6.3-8.2) g/dL Albumin (3.5-5.0) g/dL Globulin (1.7-4.1) g/dL Albumin/Globulin Ratio (1.0-2.8) Lipase (23-300) U/L Prostate Specific Ag (0.10-4.00) ng/mL Urine Color Yellow Urine Appearance Clear Urine pH 5.0 (4.5-8.0) Ur Specific [place] >=1.030 H (1.000-1.035) Urine Protein 1+ H (Negative) Urine Glucose (UA) Negative (Negative) g/dL Urine Ketones Trace H (NEGATIVE) Urine Occult Blood Trace-lysed (Negative) Urine Nitrate Negative (Negative) Urine Bilirubin 1+ H (NEGATIVE) Ur Bilirubin Confirm Negative (Negative) Urine Urobilinogen 0.2 (0.2) E.U./dL Ur Leukocyte Esterase Negative (NEGATIVE) Urine RBC None seen (0-5/HPF) Urine WBC None seen (0-5/HPF) Ur Squamous Epith Cells 0-1 /hpf (0-5/HPF) Urine Bacteria None seen (None) Urine Mucus 1+ H (Negative) Ur Culture Indicated? Cult not indicated Micro UA Comment * 05/29/20 05/29/20 Range/Units 22:15 22:15 WBC (4.5-11.0) X10^3/uL RBC (4.5-5.9) X10^6/uL Hgb (13.5-17.5) g/dL Hct (41-53) % MCV (80-100) fL MCH (26-34) PG MCHC (30-36) % RDW (11.6-14.8) % Plt Count (150-400) X10^3/uL Neut % (Auto) (50-75) % Lymph % (Auto) (25-40) % [place] % (Auto) (3-14) % Eos % (Auto) (2-4) % Baso % (Auto) (0-2) % Neut # (Auto) (4215-7106) /uL Lymph # (Auto) (6819-4778) /uL [place] # (Auto) (0-900) /uL Eos # (Auto) (0-450) /uL Baso # (Auto) (0-100) /uL PT (10.1-12.7) SECONDS INR (0.9-1.3) APTT (26.4-36.2) SECONDS Sodium 135 L (137-145) mmol/L Potassium 4.3 (3.4-5.1) mmol/L Chloride 102 (98-107) mmol/L Carbon Dioxide 27 (22-32) mmol/L BUN 23 H (9-20) mg/dL Creatinine 1.22 (0.66-1.25) mg/dL Estimated GFR 58.6 L (>60) mL/min BUN/Creatinine Ratio 18.9 (6-22) Glucose 190 H (80-110) mg/dL Calcium 8.9 (8.4-10.2) mg/dL Total Bilirubin 1.4 H (0.2-1.3) mg/dL AST 18 (17-59) IU/L ALT 12 (<50) IU/L Alkaline Phosphatase 105 (38-126) U/L Total Protein 7.5 (6.3-8.2) g/dL Albumin 3.9 (3.5-5.0) g/dL Globulin 3.6 (1.7-4.1) g/dL Albumin/Globulin Ratio 1.1 (1.0-2.8) Lipase 66 (23-300) U/L Prostate Specific Ag 1.27 (0.10-4.00) ng/mL Urine Color Urine Appearance Urine pH (4.5-8.0) Ur Specific [place] (1.000-1.035) Urine Protein (Negative) Urine Glucose (UA) (Negative) g/dL Urine Ketones (NEGATIVE) Urine Occult Blood (Negative) Urine Nitrate (Negative) Urine Bilirubin (NEGATIVE) Ur Bilirubin Confirm (Negative) Urine Urobilinogen (0.2) E.U./dL Ur Leukocyte Esterase (NEGATIVE) Urine RBC (0-5/HPF) Urine WBC (0-5/HPF) Ur Squamous Epith Cells (0-5/HPF) Urine Bacteria (None) Urine Mucus (Negative) Ur Culture Indicated? Micro UA Comment Imaging Data CT scan - abdomen/pelvis: Radiologist's Impression: GB distentiion with stones and/or sludge Enlarged prostate with impression or possible invasion of inferior bladder wall Discharge Plan Departure Patient Disposition: Home Clinical Impression: Abdominal pain Qualifiers: Abdominal location: lower abdomen, unspecified Qualified Code(s): R10.30 - Lower abdominal pain, unspecified Discharge Date/Time: 05/30/20 02:53 Instructions: DI for Abdominal Pain-Adult Activity Restrictions/Additional Instructions: *You have been diagnosed with [ abdominal pain, urinary retention ] *What to do: *Take medications as directed *Follow up with urology in 2-3 days, call for an appointment. Let them know you were seen in the Emergency Department and that we ask that you be seen in follow up *Return to ER if you should have any new, worsening or concerning symptoms, such as [worsening pain, fever > 101F, persistent vomiting or other bothersome symptoms Prescriptions: New ondansetron 4 mg tablet,disintegrating 4 mg PO TID-QID PRN (Reason: nausea and vomiting) Qty: 10 RF: 0 oxycodone 5 mg tablet 5 mg PO Q4-6H PRN (Reason: pain) Qty: 10 RF: 0 No Action carvedilol 25 mg tablet 25 mg PO BID RF: 0 lisinopril 20 mg tablet 20 mg PO BID RF: 0 clopidogrel 75 mg tablet 75 mg PO QPM RF: 0 amlodipine 5 mg Tablet 5 mg PO QAM RF: 0 rosuvastatin 20 mg tablet 20 mg PO DAILY RF: 0 Referrals: John Cooley MD [Physician] - Finesse Levine MD [Primary Care Provider] -
[2020-05-29 21:57] LABS: Ictotest Urine Negative (Negative)
[2020-05-29 22:24] LABS: Add Manual Diff / Slide Review NO; Basophils Absolute Auto 100 /uL (0-100); Basophils Percent Auto 0.7 % (0-2); Eosinophils Absolute Auto 100 /uL (0-450); Eosinophils Percent Auto 0.5 % (2-4); Hematocrit 44.6 % (41-53); Hemoglobin 15.3 g/dL (13.5-17.5); Lymphocytes Absolute Auto 1900 /uL (1100-4500); Lymphocytes Percent Auto 12.4 % (25-40); Mean Corpuscular HGB Conc 34.3 % (30-36); Mean Corpuscular Hemoglobin 31.3 PG (26-34); Mean Corpuscular Volume 91.2 fL (80-100); Monocytes Absolute Auto 1500 /uL (0-900); Monocytes Percent Auto 9.5 % (3-14); Neutrophils Absolute Auto 12000 /uL (1500-7000); Neutrophils Percent Auto 76.9 % (50-75); Platelet Count 198 X10^3/uL (150-400); Red Cell Distribution Width 15.2 % (11.6-14.8); White Blood Cell Count 15.6 X10^3/uL (4.5-11.0)
[2020-05-29 22:32] LABS: INR 1.1 (0.9-1.3); Prothrombin Time 12.6 SECONDS (10.1-12.7)
[2020-05-29 22:35] LABS: PTT Partial Thromboplastin Tim 28 SECONDS (26.4-36.2)
[2020-05-29 22:36] LABS: Alanine Aminotransferase 12 IU/L (<50); Albumin 3.9 g/dL (3.5-5.0); Albumin Globulin Ratio 1.1 (1.0-2.8); Alkaline Phosphatase 105 U/L (38-126); Aspartate Aminotransferase 18 IU/L (17-59); BUN Creatinine Ratio 18.9 (6-22); Bilirubin Total 1.4 mg/dL (0.2-1.3); Blood Urea Nitrogen 23 mg/dL (9-20); Calcium 8.9 mg/dL (8.4-10.2); Carbon Dioxide 27 mmol/L (22-32); Chloride 102 mmol/L (98-107); Estimated Glomerular Filt Rate 58.6 mL/min (>60); Globulin 3.6 g/dL (1.7-4.1); Glucose 190 mg/dL (80-110); HEMOLYSIS < 15 (0-50); Lipase 66 U/L (23-300); Potassium 4.3 mmol/L (3.4-5.1); Sodium 135 mmol/L (137-145); Total Protein 7.5 g/dL (6.3-8.2)
[2020-05-29 22:56] LABS: Bacteria Urine None Seen; Mucus Urine 1+ (Negative); Squamous Epithelial Cell Urine 0-1 /HPF (0-5/HPF)
[2020-05-29 22:57] LABS: Culture Indicated Urine Cult Not Indicated; RBC Urine None Seen (0-5/HPF); WBC Urine None Seen (0-5/HPF)
--- NOTE | 2020-05-29 23:02 | DI.CT.S_ITS ---
PROCEDURE: CT ABDOMEN PELVIS W CON INDICATIONS: severe pain, nausea, elevated WBCs TECHNIQUE: After the administration of intravenous contrast, 5 mm thick sections acquired from the diaphragm to the symphysis. 5 mm coronal and sagittal reformats were acquired. For radiation dose reduction, the following was used: automated exposure control, adjustment of mA and/or kV according to patient size. COMPARISON: [facility], CT, ABDOMEN/PELVIS WITH CONTRAST, 02/01/2017, 12:07. FINDINGS: Image quality: Excellent. ABDOMEN: Lung bases: Lung bases are clear. Heart size is enlarged. Small hiatal hernia. Left gynecomastia partially visualized. Well-circumscribed left paramedian subcutaneous cyst measuring of 4.3 x 2.6 cm, (09/18), previously 3.2 x 1.9 cm in 2017. This creates mass effect at the skin. Solid organs: Liver is normal in size. Heterogeneous enhancement in the right and left lobes of the liver. No focal lesion is identified. Gallbladder is mildly distended. Layering density most compatible with gallstones or sludge. The CBD measures 7 mm, similar to the prior exam Pancreas enhances normally. Pancreatic duct is not dilated. Spleen is normal in size and enhancement. No adrenal nodules. Kidneys demonstrate normal size and enhancement, without hydronephrosis. Small cyst in the superior pole of the right kidney. Peritoneum and bowel: Bowel loops demonstrate normal wall thickness and caliber. Diverticulosis. Normal appendix. No free fluid or air. Nodes and vessels: No retroperitoneal or mesenteric adenopathy by size criteria. No abdominal aortic aneurysm. Minimal ectasia. Extensive atherosclerotic plaque. Miscellaneous: No ventral hernias. PELVIS: Genitourinary: Bladder is within normal limits. Prostatomegaly with median lobe hypertrophy. Overall this appears similar to the prior CT from 2017. Large left scrotal cystic structure partially visualized measuring approximately 6.6 x 6.4 cm, (). This likely corresponds to the previously seen spermatocele and appears increased in size. Right the scrotal cystic structure measuring at 3.1 x 2 cm, (), this likely corresponds to the epididymal cyst and may be slightly increased in size. Miscellaneous: No inguinal hernias or adenopathy. Bones: No suspicious bony lesions. L4-L5 anterolisthesis measuring 6 mm. Moderate DDD. No vertebral body compression fractures. IMPRESSION: 1. Distended gallbladder. Gallbladder sludge or stones. Findings could be seen in acute cholecystitis. -recommend further evaluation with abdominal ultrasound. 2. Heterogeneous enhancement in the liver. This could be due to hyperemia possibly due to inflamed gallbladder and/or perfusion abnormality. 3. Left scrotal large spermatocele partially visualized measuring at least 6.6 cm appears increased in size compared to 2017. -consider further evaluation with testicular ultrasound. 4. Prostatomegaly with median lobe hypertrophy appears similar to the prior CT from 2017. -However, if the patient has hematuria consider further evaluation with CT IVP. 5. Left paramedian inferior chest subcutaneous cyst measuring 4.3 cm is increased in size. This most likely represents a sebaceous or epidermal inclusion cyst. No significant discrepancy with the overnight preliminary interpretation. Less suspicious about bladder wall invasion as described in the outside report. Dictated by: Antoine Louise M.D. on 05/30/2020 at 8:04 Approved by: Antoine Louise M.D. on 05/30/2020 at 8:28
[2020-05-29] MEDS: PANTOPRAZOLE 40 MG VIAL IV (23:15)
[2020-05-29] MEDS: KETOROLAC 60 MG/2 ML VIAL 15 MG IV (23:15)
[2020-05-29] MEDS: ONDANSETRON 4 MG/2 ML INJ IV (23:16)
[2020-05-29] MEDS: SODIUM CHLORIDE 0.9% 1,000 ML 1000 ML IV (23:16)
[2020-05-30 00:54] LABS: Prostate Specific Antigen 1.27 ng/mL (0.10-4.00)
[2020-05-30] MEDS: LIDOCAINE 2% (UROJET) 5 ML GEL TOP (02:04)
[2020-05-30] MEDS: OXYCODONE/APAP 5/325 PREPACK 1 BOTTLE MISC (02:27)
[2020-05-30 02:29] VITALS: PULSE 88; O2SAT 94
[2020-05-30 02:30] VITALS: BP 175/81; PULSE 87; O2SAT 97
--- NOTE | 2020-05-30 02:33 | PC.NURSE ---
Patient reports some relief since catheter began draining bladder.
--- NOTE | 2020-05-30 02:40 | PC.NURSE ---
Patient educated on smith care and leg bag care. Declined switching to leg bag in ER, wants to keep overnight bag on.
--- NOTE | 2020-05-30 02:47 | PC.NURSE ---
Patient signed discharge, denied having any questions. Afterwards reports he feels chilled and wants a warm blanket. Provided blanket, patient afebrile 98.2oral. Patient requesting couple mins before discharge.
[2020-05-30 02:49] VITALS: TEMP 36.8
--- NOTE | 2020-05-30 23:45 | DI.US.S_ITS ---
PROCEDURE: US ABDOMEN LIMITED INDICATIONS: ABDOMINAL PAIN, ABNORMAL GB ON CT TECHNIQUE: Real-time scanning was performed of the abdominal and retroperitoneal organs, with image documentation. COMPARISON: [facility], CT, CT ABDOMEN PELVIS W CON, 05/29/2020, 23:02. FINDINGS: Liver: Liver is normal in size and homogeneous in echotexture. Gallbladder: Gallbladder wall is at the upper limits of normal in thickness measuring 3 mm. There is appearance of sludge within the gallbladder lumen. Biliary ducts: Intrahepatic bile ducts are non-dilated. Extrahepatic bile duct caliber measures 7.5 mm. However, it is noted to narrowed near the pancreatic head to 3.3 mm. Normal is 6-7 mm or less in diameter, or 10 mm or less post-cholecystectomy. IMPRESSION: 1. Gallbladder wall thickening with appearance of sludge and mild prominence of the common bile duct. No definitive source of obstruction is identified. Recommend correlation of patient's symptoms as developing cholecystitis cannot be definitively excluded. Further evaluation with CT/MR is recommended for further evaluation, as well as evaluation of ductal prominence. The above findings are concordant with preliminary report. Dictated by: Luann Nagel M.D. on 05/30/2020 at 10:03 Approved by: Luann Nagel M.D. on 05/30/2020 at 10:05
== END 2020-05-30 02:53 | disposition home or self-care (01) ==
PROVIDERS: Emergency Provider Emergency Medicine; PCP Family Medicine
DX: R10.30 Lower abdominal pain, unspecified (principal); R35.0 Frequency of micturition; R33.8 Other retention of urine
CPT/HCPCS: 36415; 51798; 74177; 76705; 80053; 81001; 83690; 84153; 85025; 85610; 85730; 93005; 96361; 96374; 96375; 99284; 99285; C9113; J1885; J2405; Q9967

== ENCOUNTER 2020-06-01 10:35 | Emergency (ER) | payer OTHER, SELFPAY ==
[2020-06-01] VITALS (168 sets, daily range): BP systolic 72–109; BP diastolic 35–74; PULSE 59–70; RESP 17–73; TEMP 35.9–36.6; O2SAT 64–99; BMI 25.9
--- NOTE | 2020-06-01 10:54 | ED_ITS ---
HPI - Weakness General Chief complaint: Weakness Stated complaint: ENLARGED GALL BLADDER, DEHYDRATED, CAN'T STAND Time Seen by Provider: 06/01/20 10:40 Source: patient and family Mode of arrival: Wheelchair Limitations: no limitations History of Present Illness HPI Narrative: This is a 70-year-old male who comes in for increased weakness, concerns for dehydration and feeling generally in worse. Patient was seen here on the with difficulty with urination. He son have an enlarged prostate but also some changes to his gallbladder. Patient since then has had only 800 cc out total over the last 2-3 days. He has noted some dark almost bloody urine from his [place] catheter which was placed in the ER. He has not had any fevers. He has been short of breath him and his family are unclear about whether they think his breathing is significantly worse. He denies any chest pain or pressure, he has had abdominal pain which is why he was here on the which is continued and radiates towards his back and crossed to the left side from the middle. Patient has had nausea and had 1 episode of emesis. He denies any fevers. He is noted to be jaundiced here in the department any there his family nor the patient can not tell me if this is new. Patient has had very minimal stool output with a small pellets of stool x1, he has not appreciated any swelling of his abdomen or extremities. He does have a history of CABG, bilateral lower extremity stents, carotid stent her endarterectomy, vasectomy and takes medication including Plavix, amlodipine, carvedilol and lisinopril. He avoids alcohol, occasional THC but no other illicit. He was a patient of Dr. Anuj jones but is currently in between providers. Patient's son is initially at bedside assisting with history, he states that patient also had COVID like symptoms and pneumonia about 4 months ago and has not truly regained his sense of smell or ever came back to his normal baseline of activity or weight although he did improve. Patient was not tested at the time of his illness. Related Data Home Medications Medication Instructions Recorded Confirmed amlodipine 5 mg PO QAM 10/16/19 10/16/19 carvedilol 25 mg PO BID 10/16/19 10/16/19 clopidogrel 75 mg PO QPM 10/16/19 10/16/19 lisinopril 20 mg PO BID 10/16/19 10/16/19 rosuvastatin 20 mg PO DAILY 10/16/19 10/16/19 Previous Rx's Medication Instructions Recorded ondansetron 4 mg PO TID-QID PRN #10 tab 05/30/20 oxycodone 5 mg PO Q4-6H PRN #10 tab 05/30/20 Allergies Allergy/AdvReac Type Severity Reaction Status Date / Time No Known Drug Allergies Allergy Verified 05/29/20 21:45 Review of Systems Review of Systems ROS Unobtainable: All systems reviewed & are unremarkable except as noted in HPI and below Patient History Medical History (Updated 06/01/20 @ 13:49 by Supriya Tolliver DO) Carotid artery narrowing (Acute) Hyperlipidemia (Acute) Hypertension (Acute) Pneumonia (Acute) Surgical History H/O carotid endarterectomy (Acute) H/O eye surgery (Acute) H/O vasectomy (Acute) History of heart bypass surgery (Acute) Status post coronary artery bypass graft Social History Smoking Status: Current some day smoker Smoking Status: Current some day smoker alcohol intake frequency: holidays/special occasions only Substance Use Type: does not use Exam Narrative Exam Narrative: GEN: Thin male who appears ill, alert and oriented x 3, patient appears to be in moderate distress. Patient is jaundiced. HEENT: Atraumatic, pupils are equal round reactive to light, very light scleral icterus, extraocular movements are intact, nares are clear, TMs are clear with no fluid, there is no conjunctival pallor. Throat is clear without any exudates, erythema, tonsillar enlargement or uvular deviation, dry mucous membranes. HEART: Regular rate and rhythm without murmur, clicks, rubs. Pulses are equal in upper and lower extremities LUNGS:Lungs sounds are equal bilaterally,, no wheezes, rales, crackles, chest moves symmetrically, positive for tachypnea no accessory muscle use. ABD:bowel sounds normal, soft, positive for mid abdominal and epigastric tenderness, no guarding, rebound, rigidity, no masses noted, no hepato splenomegaly :No CVA tenderness, patient has an enlarged left testicle, it is soft with no firm masses noted, unable to palpate any hernias in the right or left inguinal area. MSCL: Non-tender. Normal range of motion of extremities. NEURO:CN 2-12 intact, sensation normal SKIN: see above Initial Vital Signs Initial Vital Signs: Vital Signs Temperature 96.7 F L 06/01/20 10:45 Pulse Rate 66 06/01/20 10:45 Respiratory Rate 22 06/01/20 10:45 Blood Pressure 106/74 06/01/20 10:45 Pulse Oximetry 94 06/01/20 10:45 Procedures Central Line Placement Right IJ: Time Out Performed: Yes Patient Placed on Monitor/Pulse Ox: Yes MD Prep: mask, gown and gloves Central Line Prep: Chlorhexidine scrub and sterile drapes applied Local Anesthetic: lidocaine 1% Amount of anesthesia used (mL): 4 Ultrasound Used for Placement: Yes Central Line Lumen Inserted: triple Post Procedure: sutured in place, good blood return, all ports aspirated, flushed, capped and sterile dressing applied Post Procedure X-Ray: tip of catheter in good position (catheter tip low, pulled back.) and no pneumothorax seen Patient Tolerated Procedure: Well Complications: none Scores GCS [place] coma scale eye opening: Spontaneous Eleanor coma scale verbal response: Orientated Eleanor coma scale motor response: Obey commands Eleanor coma scale total score: 15 Course Orders Ordered: ED Orders 06/01/20 10:54 CT abdomen pelvis wo con Stat XR chest 1V Stat 06/01/20 10:56 Ammonia (NH3) Stat Complete Blood Count AUTO DIFF Stat Comprehensive Metabolic Panel Stat Lactate (Lactic Acid) Stat Lipase Stat Magnesium Stat NT-proBNP (BNP-Adult 18+) Stat Partial Thromboplastin Time Stat Procalcitonin Stat Prothrombin Time INR Stat Troponin & CK Cardiac Panel Stat 06/01/20 11:20 COVID19 -ED/INPAT/OR/L&D Stat 06/01/20 11:37 US abdomen limited Stat 06/01/20 12:02 Ictotest Urine Stat Urinalysis and Microscopic Stat Urine Culture Stat 06/01/20 12:10 Blood Culture Stat 06/01/20 13:36 XR chest 1V Stat 06/01/20 14:22 XR chest 1V Stat Norepinephrine Bitartrate 4 mg (/ Dextrose) 254 mls @ 30.48 mls/hr IV TITRATE BRIAN; Protocol Last Titration: 06/01/20 15:43 Dose: 0 mcg/min, 0 mls/hr Documented by: Titration: 06/01/20 13:52 Dose: 12 mcg/min, 45.72 mls/hr Documented by: Titration: 06/01/20 13:45 Dose: 6 mcg/min, 22.86 mls/hr Documented by: Admin: 06/01/20 13:15 Dose: 2 mcg/min, 7.62 mls/hr Documented by: LOKESH Vasopressin 40 unit/ Sodium (Chloride) 102 mls @ 4.5 mls/hr IV CONT BRIAN Last Infusion: 06/01/20 15:44 Dose: 0 mls/hr Documented by: Admin: 06/01/20 15:09 Dose: 4.5 mls/hr Documented by: LOKESH Lactated Ringer's (Lactated Ringers) 1,000 mls @ 300 mls/hr IV CONT BRIAN Last Infusion: 06/01/20 15:46 Dose: 0 mls/hr Documented by: Admin: 06/01/20 15:33 Dose: 300 mls/hr Documented by: LOKESH Discontinued Medications Fentanyl (Sublimaze) 25 mcg IV NOW ONE Stop: 06/01/20 13:14 Last Admin: 06/01/20 13:17 Dose: 25 mcg Documented by: ELENI Lactated Ringer's (Lactated Ringers) 2,175 mls @ 725 mls/hr 30 ml/kg infuse over 3 hr (2175 ml) IV NOW ONE Stop: 06/01/20 13:56 Last Infusion: 06/01/20 14:40 Dose: 0 mls/hr Documented by: Admin: 06/01/20 11:05 Dose: 725 mls/hr Documented by: LOKESH Piperacillin/Tazobactam/Dextrose (Zosyn) 2.25 gm in 50 mls @ 100 mls/hr IV NOW ONE Stop: 06/01/20 12:14 Last Infusion: 06/01/20 13:05 Dose: 0 mls/hr Documented by: Admin: 06/01/20 12:33 Dose: 100 mls/hr Documented by: LOKESH Calcium Gluconate 4.65 meq/ (Sodium Chloride) 60 mls @ 180 mls/hr IV NOW ONE Stop: 06/01/20 13:01 Last Infusion: 06/01/20 13:45 Dose: 0 mls/hr Documented by: Admin: 06/01/20 13:18 Dose: 180 mls/hr Documented by: LOKESH Sodium Chloride (Normal Saline 0.9%) 500 mls @ 500 mls/hr IV BOLUS ONE Stop: 06/01/20 15:43 Last Admin: 06/01/20 14:48 Dose: Not Given Documented by: LOKESH Lactated Ringer's (Lactated Ringers) 500 mls @ 1,000 mls/hr IV BOLUS ONE Stop: 06/01/20 14:39 Last Infusion: 06/01/20 15:07 Dose: 0 mls/hr Documented by: Admin: 06/01/20 14:10 Dose: 1,000 mls/hr Documented by: LOKESH Reevaluation(s) Reevaluation #1: Discussed with patient his blood pressure has continued to drop, he does appear to be in septic shock, patient also per daughter has a history of dilated cardiomyopathy and is also in acute renal failure making very little urine. We discussed patient does not wish for intubation or CPR, he is willing for pressors and if needed a central line. Discussed at length with the patient and the daughter my concerns and that he is very ill at this time. Time: 12:15 Consultations Consultation #1: Spoke with Dr. Montes and recommends levophed based on patients cardiac history, acute renal failure, fluid overload and sepsis likely secondary to cholangitis, daughter states that he does have a history of dilated cardiomyopathy, we do not have records/ECHO, hold ccb and bb. Time: 12:22 Consultation #2: Spoke with Dr. Del Rio with general surgery, suspects more cholecystitis with severe sepsis over cholangitis based on the bile duct not being dilated but this is not a conclusive diagnosis. She states that this time he would not be a candidate for the OR regardless and she would be willing to watch him here if the hospitalist was comfortable but if they were not she would suggest transfer, fluids and antibiotics. Time: 12:44 Consultation #3: Spoke with Dr. Haley from [place] ICU, discussed patient's recent medical history, labs, EKG findings, imaging and his wishes in terms of POLST status. Plan for transfer to [facility] at this time. Time: 14:30 Vital Signs Vital signs: Vital Signs - 8 hr 06/01/20 10:45 06/01/20 10:48 06/01/20 10:49 Temperature 96.7 F L Pulse Rate 66 64 63 Respiratory Rate 22 48 H 73 H Blood Pressure 106/74 106/55 L Pulse Oximetry 94 64 L 06/01/20 11:00 06/01/20 11:27 06/01/20 11:30 Temperature Pulse Rate 67 65 63 Respiratory Rate 42 H 37 H 39 H Blood Pressure 88/58 L Pulse Oximetry 91 85 L 85 L 06/01/20 11:31 06/01/20 11:36 06/01/20 11:42 Temperature Pulse Rate 62 65 69 Respiratory Rate 36 H 38 H 39 H Blood Pressure 84/52 L 94/53 L 92/50 L Pulse Oximetry 85 L 86 L 86 L 06/01/20 11:45 06/01/20 12:00 06/01/20 12:02 Temperature Pulse Rate 66 63 61 Respiratory Rate 36 H 37 H 38 H Blood Pressure 103/44 L 75/40 L 83/40 L Pulse Oximetry 86 L 85 L 99 06/01/20 12:05 06/01/20 12:09 06/01/20 12:10 Temperature Pulse Rate 66 66 66 Respiratory Rate 40 H 40 H 39 H Blood Pressure 78/55 L 83/67 L Pulse Oximetry 86 L 84 L 06/01/20 12:11 06/01/20 12:15 06/01/20 12:20 Temperature Pulse Rate 66 60 61 Respiratory Rate 35 H 41 H 33 H Blood Pressure 77/47 L 86/42 L 81/42 L Pulse Oximetry 85 L 92 91 06/01/20 12:21 06/01/20 12:22 06/01/20 12:23 Temperature Pulse Rate 66 66 63 Respiratory Rate 33 H 30 H 32 H Blood Pressure Pulse Oximetry 95 90 L 95 06/01/20 12:24 06/01/20 12:25 06/01/20 12:26 Temperature Pulse Rate 68 65 67 Respiratory Rate 34 H 36 H 36 H Blood Pressure 88/49 L Pulse Oximetry 94 88 L 85 L 06/01/20 12:27 06/01/20 12:28 06/01/20 12:29 Temperature Pulse Rate 64 66 69 Respiratory Rate 36 H 36 H 33 H Blood Pressure Pulse Oximetry 82 L 82 L 85 L 06/01/20 12:30 06/01/20 12:31 06/01/20 12:32 Temperature Pulse Rate 66 64 67 Respiratory Rate 33 H 33 H 34 H Blood Pressure 88/53 L Pulse Oximetry 83 L 81 L 81 L 06/01/20 12:33 06/01/20 12:34 06/01/20 12:35 Temperature Pulse Rate 66 61 62 Respiratory Rate 32 H 34 H 32 H Blood Pressure 95/42 L Pulse Oximetry 84 L 82 L 84 L 06/01/20 12:36 06/01/20 12:37 06/01/20 12:38 Temperature Pulse Rate 66 65 65 Respiratory Rate 32 H 32 H 31 H Blood Pressure Pulse Oximetry 83 L 83 L 85 L 06/01/20 12:39 06/01/20 12:40 06/01/20 12:41 Temperature Pulse Rate 61 60 60 Respiratory Rate 27 H 29 H 27 H Blood Pressure 85/40 L Pulse Oximetry 91 83 L 78 L 06/01/20 12:42 06/01/20 12:43 06/01/20 12:44 Temperature Pulse Rate 60 59 L 60 Respiratory Rate 29 H 29 H 29 H Blood Pressure Pulse Oximetry 88 L 85 L 89 L 06/01/20 12:45 06/01/20 12:46 06/01/20 12:47 Temperature Pulse Rate 59 L 60 61 Respiratory Rate 25 H 28 H 27 H Blood Pressure 78/41 L Pulse Oximetry 87 L 87 L 83 L 06/01/20 12:48 06/01/20 12:49 06/01/20 12:50 Temperature Pulse Rate 61 60 59 L Respiratory Rate 28 H 29 H 31 H Blood Pressure 79/43 L 81/42 L Pulse Oximetry 85 L 85 L 88 L 06/01/20 12:51 06/01/20 13:36 06/01/20 13:39 Temperature Pulse Rate 59 L 65 67 Respiratory Rate 31 H 38 H 35 H Blood Pressure 83/45 L Pulse Oximetry 85 L 93 90 L 06/01/20 13:40 06/01/20 13:42 06/01/20 13:43 Temperature Pulse Rate 67 66 66 Respiratory Rate 33 H 34 H 33 H Blood Pressure 85/48 L 83/45 L 74/43 L Pulse Oximetry 90 L 92 91 06/01/20 13:44 06/01/20 13:46 06/01/20 13:50 Temperature Pulse Rate 59 L 67 66 Respiratory Rate 32 H 29 H 25 H Blood Pressure 78/35 L 74/38 L 77/41 L Pulse Oximetry 89 L 89 L 84 L 06/01/20 13:51 06/01/20 13:53 06/01/20 13:54 Temperature Pulse Rate 63 62 65 Respiratory Rate 29 H 26 H 24 Blood Pressure 75/39 L 73/39 L 73/39 L Pulse Oximetry 83 L 93 91 06/01/20 13:55 06/01/20 13:56 06/01/20 13:57 Temperature Pulse Rate 61 65 64 Respiratory Rate 25 H 26 H 23 Blood Pressure 80/44 L 74/42 L 75/41 L Pulse Oximetry 91 91 91 06/01/20 13:58 06/01/20 13:59 06/01/20 14:00 Temperature Pulse Rate 59 L 67 61 Respiratory Rate 23 20 22 Blood Pressure 72/42 L 80/47 L Pulse Oximetry 91 91 91 06/01/20 14:02 06/01/20 14:03 06/01/20 14:04 Temperature Pulse Rate 62 65 65 Respiratory Rate 21 22 23 Blood Pressure 79/45 L 76/45 L 79/45 L Pulse Oximetry 89 L 90 L 89 L 06/01/20 14:05 06/01/20 14:06 06/01/20 14:07 Temperature Pulse Rate 65 65 65 Respiratory Rate 23 18 22 Blood Pressure 81/47 L 79/45 L 75/43 L Pulse Oximetry 90 L 90 L 89 L 06/01/20 14:08 06/01/20 14:10 06/01/20 14:12 Temperature Pulse Rate 63 60 61 Respiratory Rate 18 18 21 Blood Pressure 76/45 L 76/45 L 75/45 L Pulse Oximetry 90 L 89 L 89 L 06/01/20 14:13 06/01/20 14:14 06/01/20 14:15 Temperature Pulse Rate 62 62 65 Respiratory Rate 20 19 19 Blood Pressure 79/42 L 85/46 L Pulse Oximetry 89 L 88 L 88 L 06/01/20 14:16 06/01/20 14:17 06/01/20 14:18 Temperature Pulse Rate 65 66 66 Respiratory Rate 19 19 18 Blood Pressure 81/47 L 81/47 L Pulse Oximetry 89 L 87 L 87 L 06/01/20 14:19 06/01/20 14:20 06/01/20 14:21 Temperature Pulse Rate 65 62 65 Respiratory Rate 22 19 19 Blood Pressure 79/45 L Pulse Oximetry 86 L 90 L 89 L 06/01/20 14:22 06/01/20 14:23 06/01/20 14:24 Temperature Pulse Rate 66 65 66 Respiratory Rate 22 20 21 Blood Pressure 81/45 L 76/43 L Pulse Oximetry 89 L 89 L 89 L 06/01/20 14:25 06/01/20 14:26 06/01/20 14:27 Temperature Pulse Rate 61 66 64 Respiratory Rate 24 20 23 Blood Pressure 78/47 L 85/47 L Pulse Oximetry 91 94 94 06/01/20 14:28 06/01/20 14:29 06/01/20 14:30 Temperature Pulse Rate 65 66 66 Respiratory Rate 23 23 26 H Blood Pressure 85/50 L 83/48 L Pulse Oximetry 94 89 L 92 06/01/20 14:31 06/01/20 14:32 06/01/20 14:33 Temperature Pulse Rate 65 65 65 Respiratory Rate 27 H 23 23 Blood Pressure 81/44 L Pulse Oximetry 92 92 91 06/01/20 14:34 06/01/20 14:35 06/01/20 14:36 Temperature Pulse Rate 66 65 66 Respiratory Rate 21 24 23 Blood Pressure 86/50 L 90/46 L Pulse Oximetry 93 93 91 06/01/20 14:37 06/01/20 14:38 06/01/20 14:39 Temperature Pulse Rate 64 64 68 Respiratory Rate 22 25 H 22 Blood Pressure 79/43 L Pulse Oximetry 91 91 89 L 06/01/20 14:40 06/01/20 14:41 06/01/20 14:42 Temperature Pulse Rate 67 68 67 Respiratory Rate 24 27 H 25 H Blood Pressure 80/50 L 81/42 L Pulse Oximetry 89 L 87 L 87 L 06/01/20 14:43 06/01/20 14:44 06/01/20 14:45 Temperature Pulse Rate 66 67 67 Respiratory Rate 28 H 28 H 25 H Blood Pressure 78/46 L Pulse Oximetry 89 L 92 92 06/01/20 14:46 06/01/20 14:47 06/01/20 14:48 Temperature Pulse Rate 62 66 66 Respiratory Rate 23 22 22 Blood Pressure 82/43 L 80/45 L Pulse Oximetry 92 92 90 L 06/01/20 14:49 06/01/20 14:50 06/01/20 14:51 Temperature Pulse Rate 66 66 66 Respiratory Rate 23 21 24 Blood Pressure 79/45 L Pulse Oximetry 88 L 88 L 85 L 06/01/20 14:52 06/01/20 14:53 06/01/20 14:54 Temperature Pulse Rate 67 60 69 Respiratory Rate 21 22 23 Blood Pressure 79/45 L 84/48 L Pulse Oximetry 85 L 87 L 87 L 06/01/20 14:55 06/01/20 14:56 06/01/20 14:57 Temperature Pulse Rate 68 69 68 Respiratory Rate 22 24 24 Blood Pressure 83/47 L Pulse Oximetry 88 L 90 L 90 L 06/01/20 14:58 06/01/20 14:59 06/01/20 15:00 Temperature Pulse Rate 67 67 67 Respiratory Rate 24 22 22 Blood Pressure 80/46 L 78/45 L Pulse Oximetry 89 L 87 L 85 L 06/01/20 15:01 06/01/20 15:02 06/01/20 15:03 Temperature Pulse Rate 67 66 67 Respiratory Rate 22 24 23 Blood Pressure 79/44 L Pulse Oximetry 84 L 85 L 82 L 06/01/20 15:04 06/01/20 15:05 06/01/20 15:06 Temperature Pulse Rate 67 63 68 Respiratory Rate 24 20 19 Blood Pressure 81/44 L 80/46 L Pulse Oximetry 82 L 88 L 85 L 06/01/20 15:07 06/01/20 15:08 06/01/20 15:09 Temperature Pulse Rate 67 67 67 Respiratory Rate 20 21 20 Blood Pressure 78/45 L Pulse Oximetry 85 L 85 L 86 L 06/01/20 15:10 06/01/20 15:11 06/01/20 15:12 Temperature Pulse Rate 66 67 67 Respiratory Rate 17 18 19 Blood Pressure 77/44 L 73/43 L Pulse Oximetry 84 L 80 L 78 L 06/01/20 15:13 06/01/20 15:14 06/01/20 15:15 Temperature Pulse Rate 68 68 67 Respiratory Rate 20 19 20 Blood Pressure 78/46 L Pulse Oximetry 77 L 77 L 87 L 06/01/20 15:16 06/01/20 15:17 06/01/20 15:18 Temperature Pulse Rate 67 67 67 Respiratory Rate 20 19 20 Blood Pressure 82/49 L 84/51 L Pulse Oximetry 90 L 92 93 06/01/20 15:19 06/01/20 15:20 06/01/20 15:21 Temperature Pulse Rate 67 68 68 Respiratory Rate 21 23 17 Blood Pressure 88/53 L Pulse Oximetry 93 94 95 06/01/20 15:22 06/01/20 15:23 06/01/20 15:24 Temperature Pulse Rate 67 67 65 Respiratory Rate 18 19 27 H Blood Pressure 85/53 L 101/50 L Pulse Oximetry 94 92 90 L 06/01/20 15:25 06/01/20 15:26 06/01/20 15:27 Temperature Pulse Rate 66 66 68 Respiratory Rate 21 22 22 Blood Pressure 95/54 L Pulse Oximetry 89 L 83 L 83 L 06/01/20 15:28 06/01/20 15:29 06/01/20 15:30 Temperature Pulse Rate 67 67 67 Respiratory Rate 25 H 24 26 H Blood Pressure 95/53 L 100/52 L Pulse Oximetry 85 L 88 L 87 L 06/01/20 15:31 06/01/20 15:32 06/01/20 15:33 Temperature Pulse Rate 67 68 63 Respiratory Rate 23 24 24 Blood Pressure 96/53 L Pulse Oximetry 85 L 87 L 85 L 06/01/20 15:34 06/01/20 15:35 06/01/20 15:36 Temperature 97.9 F Pulse Rate 63 63 64 Respiratory Rate 23 23 20 Blood Pressure 90/54 L 94/55 L Pulse Oximetry 85 L 84 L 84 L 06/01/20 15:37 06/01/20 15:38 06/01/20 15:39 Temperature Pulse Rate 63 70 69 Respiratory Rate 19 19 21 Blood Pressure 102/56 L Pulse Oximetry 86 L 86 L 86 L 06/01/20 15:40 06/01/20 15:41 06/01/20 15:42 Temperature Pulse Rate 69 70 69 Respiratory Rate 26 H 26 H 27 H Blood Pressure 104/57 L 93/54 L Pulse Oximetry 86 L 84 L 87 L 06/01/20 15:43 06/01/20 15:44 06/01/20 15:52 Temperature Pulse Rate 70 70 68 Respiratory Rate 25 H 24 20 Blood Pressure 109/52 L 101/50 L Pulse Oximetry 84 L 87 L MDM - Weakness Lab Data Result diagrams: 06/01/20 10:56 06/01/20 10:56 Labs: Lab Results 06/01/20 06/01/20 06/01/20 Range/Units 10:56 10:56 10:56 WBC 12.9 H (4.5-11.0) X10^3/uL RBC 4.57 (4.5-5.9) X10^6/uL Hgb 14.1 (13.5-17.5) g/dL Hct 42.3 (41-53) % MCV 92.7 (80-100) fL MCH 30.8 (26-34) PG MCHC 33.3 (30-36) % RDW 15.9 H (11.6-14.8) % Plt Count 183 (150-400) X10^3/uL Neut % (Auto) 82.4 H (50-75) % Lymph % (Auto) 7.6 L (25-40) % [place] % (Auto) 5.7 (3-14) % Eos % (Auto) 3.9 (2-4) % Baso % (Auto) 0.4 (0-2) % Neut # (Auto) 79850 H (5657-2720) /uL Lymph # (Auto) 1000 L (1452-2997) /uL [place] # (Auto) 700 (0-900) /uL Eos # (Auto) 500 H (0-450) /uL Baso # (Auto) 0 (0-100) /uL PT 14.1 H (10.1-12.7) SECONDS INR 1.2 (0.9-1.3) APTT 29 (26.4-36.2) SECONDS Sodium (137-145) mmol/L Potassium (3.4-5.1) mmol/L Chloride (98-107) mmol/L Carbon Dioxide (22-32) mmol/L BUN (9-20) mg/dL Creatinine (0.66-1.25) mg/dL Estimated GFR (>60) mL/min BUN/Creatinine Ratio (6-22) Glucose (80-110) mg/dL Lactate (0.7-2.1) mmol/L Calcium (8.4-10.2) mg/dL Magnesium (1.6-2.3) mg/dL Total Bilirubin (0.2-1.3) mg/dL AST (17-59) IU/L ALT (<50) IU/L Alkaline Phosphatase (38-126) U/L Ammonia (9-30) umol/L Total Creatine Kinase (55-170) U/L CK-MB (CK-2) (<2.37) ng/mL CK-MB (CK-2) Rel Index (1.5-5.0) % Troponin I (0.01-0.034) ng/mL NT-Pro-B Natriuret Pep (<125) pg/mL Total Protein (6.3-8.2) g/dL Albumin (3.5-5.0) g/dL Globulin (1.7-4.1) g/dL Albumin/Globulin Ratio (1.0-2.8) Lipase (23-300) U/L Procalcitonin 191.29 H (<0.5) ng/mL Urine Color Urine Appearance Urine pH (4.5-8.0) Ur Specific [place] (1.000-1.035) Urine Protein (Negative) Urine Glucose (UA) (Negative) g/dL Urine Ketones (NEGATIVE) Urine Occult Blood (Negative) Urine Nitrate (Negative) Urine Bilirubin (NEGATIVE) Ur Bilirubin Confirm (Negative) Urine Urobilinogen (0.2) E.U./dL Ur Leukocyte Esterase (NEGATIVE) Urine RBC (0-5/HPF) Urine WBC (0-5/HPF) Ur Squamous Epith Cells (0-5/HPF) Amorphous Sediment Urine Bacteria (None) Urine Mucus (Negative) Ur Culture Indicated? COVID-19 PCR (Negative) 06/01/20 06/01/20 06/01/20 Range/Units 10:56 10:56 10:56 WBC (4.5-11.0) X10^3/uL RBC (4.5-5.9) X10^6/uL Hgb (13.5-17.5) g/dL Hct (41-53) % MCV (80-100) fL MCH (26-34) PG MCHC (30-36) % RDW (11.6-14.8) % Plt Count (150-400) X10^3/uL Neut % (Auto) (50-75) % Lymph % (Auto) (25-40) % [place] % (Auto) (3-14) % Eos % (Auto) (2-4) % Baso % (Auto) (0-2) % Neut # (Auto) (1607-2240) /uL Lymph # (Auto) (2657-3701) /uL Spencer # (Auto) (0-900) /uL Eos # (Auto) (0-450) /uL Baso # (Auto) (0-100) /uL PT (10.1-12.7) SECONDS INR (0.9-1.3) APTT (26.4-36.2) SECONDS Sodium 134 L (137-145) mmol/L Potassium 5.3 H (3.4-5.1) mmol/L Chloride 95 L (98-107) mmol/L Carbon Dioxide 15 L (22-32) mmol/L BUN 83 H (9-20) mg/dL Creatinine 6.47 H (0.66-1.25) mg/dL Estimated GFR 8.5 L (>60) mL/min BUN/Creatinine Ratio 12.8 (6-22) Glucose 164 H (80-110) mg/dL Lactate 5.5 H* (0.7-2.1) mmol/L Calcium 7.2 L (8.4-10.2) mg/dL Magnesium (1.6-2.3) mg/dL Total Bilirubin 6.2 H (0.2-1.3) mg/dL AST 264 H (17-59) IU/L ALT 274 H (<50) IU/L Alkaline Phosphatase 350 H D (38-126) U/L Ammonia 9 (9-30) umol/L Total Creatine Kinase (55-170) U/L CK-MB (CK-2) (<2.37) ng/mL CK-MB (CK-2) Rel Index (1.5-5.0) % Troponin I (0.01-0.034) ng/mL NT-Pro-B Natriuret Pep (<125) pg/mL Total Protein 7.6 (6.3-8.2) g/dL Albumin 3.9 (3.5-5.0) g/dL Globulin 3.7 (1.7-4.1) g/dL Albumin/Globulin Ratio 1.1 (1.0-2.8) Lipase (23-300) U/L Procalcitonin (<0.5) ng/mL Urine Color Urine Appearance Urine pH (4.5-8.0) Ur Specific [place] (1.000-1.035) Urine Protein (Negative) Urine Glucose (UA) (Negative) g/dL Urine Ketones (NEGATIVE) Urine Occult Blood (Negative) Urine Nitrate (Negative) Urine Bilirubin (NEGATIVE) Ur Bilirubin Confirm (Negative) Urine Urobilinogen (0.2) E.U./dL Ur Leukocyte Esterase (NEGATIVE) Urine RBC (0-5/HPF) Urine WBC (0-5/HPF) Ur Squamous Epith Cells (0-5/HPF) Amorphous Sediment Urine Bacteria (None) Urine Mucus (Negative) Ur Culture Indicated? COVID-19 PCR (Negative) 06/01/20 06/01/20 06/01/20 Range/Units 10:56 10:56 10:56 WBC (4.5-11.0) X10^3/uL RBC (4.5-5.9) X10^6/uL Hgb (13.5-17.5) g/dL Hct (41-53) % MCV (80-100) fL MCH (26-34) PG MCHC (30-36) % RDW (11.6-14.8) % Plt Count (150-400) X10^3/uL Neut % (Auto) (50-75) % Lymph % (Auto) (25-40) % [place] % (Auto) (3-14) % Eos % (Auto) (2-4) % Baso % (Auto) (0-2) % Neut # (Auto) (5241-3807) /uL Lymph # (Auto) (1017-5744) /uL Spencer # (Auto) (0-900) /uL Eos # (Auto) (0-450) /uL Baso # (Auto) (0-100) /uL PT (10.1-12.7) SECONDS INR (0.9-1.3) APTT (26.4-36.2) SECONDS Sodium (137-145) mmol/L Potassium (3.4-5.1) mmol/L Chloride (98-107) mmol/L Carbon Dioxide (22-32) mmol/L BUN (9-20) mg/dL Creatinine (0.66-1.25) mg/dL Estimated GFR (>60) mL/min BUN/Creatinine Ratio (6-22) Glucose (80-110) mg/dL Lactate (0.7-2.1) mmol/L Calcium (8.4-10.2) mg/dL Magnesium 2.6 H (1.6-2.3) mg/dL Total Bilirubin (0.2-1.3) mg/dL AST (17-59) IU/L ALT (<50) IU/L Alkaline Phosphatase (38-126) U/L Ammonia (9-30) umol/L Total Creatine Kinase 1261 H (55-170) U/L CK-MB (CK-2) 14.50 H (<2.37) ng/mL CK-MB (CK-2) Rel Index 1.1 L (1.5-5.0) % Troponin I 0.068 H (0.01-0.034) ng/mL NT-Pro-B Natriuret Pep 89042 H (<125) pg/mL Total Protein (6.3-8.2) g/dL Albumin (3.5-5.0) g/dL Globulin (1.7-4.1) g/dL Albumin/Globulin Ratio (1.0-2.8) Lipase 386 H D (23-300) U/L Procalcitonin (<0.5) ng/mL Urine Color Urine Appearance Urine pH (4.5-8.0) Ur Specific [place] (1.000-1.035) Urine Protein (Negative) Urine Glucose (UA) (Negative) g/dL Urine Ketones (NEGATIVE) Urine Occult Blood (Negative) Urine Nitrate (Negative) Urine Bilirubin (NEGATIVE) Ur Bilirubin Confirm (Negative) Urine Urobilinogen (0.2) E.U./dL Ur Leukocyte Esterase (NEGATIVE) Urine RBC (0-5/HPF) Urine WBC (0-5/HPF) Ur Squamous Epith Cells (0-5/HPF) Amorphous Sediment Urine Bacteria (None) Urine Mucus (Negative) Ur Culture Indicated? COVID-19 PCR (Negative) 06/01/20 06/01/20 06/01/20 Range/Units 11:20 12:02 13:58 WBC (4.5-11.0) X10^3/uL RBC (4.5-5.9) X10^6/uL Hgb (13.5-17.5) g/dL Hct (41-53) % MCV (80-100) fL MCH (26-34) PG MCHC (30-36) % RDW (11.6-14.8) % Plt Count (150-400) X10^3/uL Neut % (Auto) (50-75) % Lymph % (Auto) (25-40) % [place] % (Auto) (3-14) % Eos % (Auto) (2-4) % Baso % (Auto) (0-2) % Neut # (Auto) (5224-8928) /uL Lymph # (Auto) (4314-3527) /uL Spencer # (Auto) (0-900) /uL Eos # (Auto) (0-450) /uL Baso # (Auto) (0-100) /uL PT (10.1-12.7) SECONDS INR (0.9-1.3) APTT (26.4-36.2) SECONDS Sodium (137-145) mmol/L Potassium (3.4-5.1) mmol/L Chloride (98-107) mmol/L Carbon Dioxide (22-32) mmol/L BUN (9-20) mg/dL Creatinine (0.66-1.25) mg/dL Estimated GFR (>60) mL/min BUN/Creatinine Ratio (6-22) Glucose (80-110) mg/dL Lactate 1.9 (0.7-2.1) mmol/L Calcium (8.4-10.2) mg/dL Magnesium (1.6-2.3) mg/dL Total Bilirubin (0.2-1.3) mg/dL AST (17-59) IU/L ALT (<50) IU/L Alkaline Phosphatase (38-126) U/L Ammonia (9-30) umol/L Total Creatine Kinase (55-170) U/L CK-MB (CK-2) (<2.37) ng/mL CK-MB (CK-2) Rel Index (1.5-5.0) % Troponin I (0.01-0.034) ng/mL NT-Pro-B Natriuret Pep (<125) pg/mL Total Protein (6.3-8.2) g/dL Albumin (3.5-5.0) g/dL Globulin (1.7-4.1) g/dL Albumin/Globulin Ratio (1.0-2.8) Lipase (23-300) U/L Procalcitonin (<0.5) ng/mL Urine Color Yellow Urine Appearance Cloudy Urine pH 5.0 (4.5-8.0) Ur Specific [place] 1.020 (1.000-1.035) Urine Protein 2+ H (Negative) Urine Glucose (UA) Trace H (Negative) g/dL Urine Ketones Trace H (NEGATIVE) Urine Occult Blood 3+ H (Negative) Urine Nitrate Positive (Negative) Urine Bilirubin 2+ H (NEGATIVE) Ur Bilirubin Confirm Positive H (Negative) Urine Urobilinogen 1.0 (0.2) E.U./dL Ur Leukocyte Esterase Trace H (NEGATIVE) Urine RBC 5-10/hpf H (0-5/HPF) Urine WBC 10-30/hpf H (0-5/HPF) Ur Squamous Epith Cells 1-5 /hpf (0-5/HPF) Amorphous Sediment 2+ Urine Bacteria Many (>30) H (None) Urine Mucus 2+ H (Negative) Ur Culture Indicated? Specimen cultured COVID-19 PCR Negative (Negative) Imaging Data Chest x-ray: Radiologist Impression: [address] [address] XRay Report Signed Patient: Frankie Peraza [employer] [facility]#: [id number] : 9Acct:[id number] Age/Sex: 70 / MDate of Service: 06/01/20 Loc: ED Accession Number: [id number] Procedure: XR chest 1V Ordering Provider: Supriya Tolliver D.O. PROCEDURE: XR CHEST 1V INDICATIONS: weakness, sob, jaundice TECHNIQUE: One view of the chest was acquired. COMPARISON: [facility], CR, XR CHEST 2V, 10/16/2019, 17:35. [facility], , CHEST 1 VIEW, 03/11/2016, 19:19. [facility], CR, XR CHEST 2V, 10/23/2019, 17:14. FINDINGS: Surgical changes and devices: Patient is status post median sternotomy. Endovascular stent is noted at the left subclavian. Lungs and pleura: Lung volumes are low. Subtle radiopacity in the right mid lung is redemonstrated. Given difference in technique, direct comparison with the prior study dated October 23, 2019 is difficult. No pleural effusions or pneumothorax. Mediastinum: Mediastinal contours appear normal. Heart size is mildly enlarged, as before. Bones and chest wall: No suspicious bony lesions. Overlying soft tissues appear unremarkable. IMPRESSION: Mild cardiomegaly. Persistent right midlung radiopacity. Neoplasm cannot be excluded. If further characterization is warranted, CT of the chest could be used. Dictated by: Anamika Negron M.D. on 06/01/2020 at 11:25 Approved by: Anamika Negron M.D. on 06/01/2020 at 11:27 ECG Data Attestation: I personally reviewed and interpreted this ECG as follows: Interpretation: Sinus rhythm with ST depression in 1 and aVL as well as lateral leads V4 through V6. Patient has Q-wave in lead 3 and AVF. Patient has a prior EKG that appears similar in ST segments from 11/27/2015 in the lateral as well as 1 in aVL. Patient's rate is 62, MATHEW is 148, QRS is 90 and QTC is 462. MDM Narrative Medical decision making narrative: Concern for possible cholangitis versus cholecystitis, patient also has enlargement of his testicle with swelling and D difficulty with urination I would also be concerned about potential for cancer. Patient pressors discussed with cardiology for recommendations, also discussed with general surgery. It is felt patient would be better suited at a larger facility based on his multiple medical issues. Patient given zosyn at dose adjusted for renal clearance, 30cc/kg bolus decreased secondary to no urine output after 2L continuing at 300cc/hr, central line placed, calcium and levophed started. Patient and I discussed with his daughter at bedside and he is willing to have pressors and central line but does not want intubation or cpr. Spoke with Dr. Haley from [place] and they accept for transfer to ICU. Patient started on vasopressin as MAP and systolic pressures still low and patient is responding with BP improved to 100 systolic and MAP closer to goal. Critical Care Time Critical Care Time Critical Care Time: Yes Total Critical Care Time: 160 Attestation: The high probability of a clinically significant, sudden or life threatening deterioration of the [cardiac, pulmonary] system(s) required my full and direct attention, intervention and personal management. The aggregate critical care time was [160] minutes. This time is in addition to time spent performing reported procedures but includes the following: [x] Data Review and interpretation [x] Patient assessment and monitoring of vital signs [x] Documentation [x] Medication orders and management Discharge Plan Departure Patient Disposition: [facility] Clinical Impression: Acute renal failure, Septic shock, Acute cholecystitis Prescriptions: No Action ondansetron 4 mg tablet,disintegrating 4 mg PO TID-QID PRN (Reason: nausea and vomiting) Qty: 10 RF: 0 oxycodone 5 mg tablet 5 mg PO Q4-6H PRN (Reason: pain) Qty: 10 RF: 0 carvedilol 25 mg tablet 25 mg PO BID RF: 0 lisinopril 20 mg tablet 20 mg PO BID RF: 0 clopidogrel 75 mg tablet 75 mg PO QPM RF: 0 amlodipine 5 mg Tablet 5 mg PO QAM RF: 0 rosuvastatin 20 mg tablet 20 mg PO DAILY RF: 0 Referrals: Finesse Levine MD [Primary Care Provider] -
--- NOTE | 2020-06-01 10:54 | DI.CT.S_ITS ---
PROCEDURE: CT ABDOMEN PELVIS WO CON INDICATIONS: jaundice, abdominal pain, swelling testicle, weakness TECHNIQUE: Noncontrast 5 mm thick sections acquired from the diaphragms to the symphysis. 5 mm coronal and sagittal reformats were then performed. For radiation dose reduction, the following was used: automated exposure control, adjustment of mA and/or kV according to patient size. COMPARISON: None. FINDINGS: Image quality: Excellent. ABDOMEN: Lung bases: Mild atelectasis is present in the dependent lungs bilaterally. Heart is enlarged. Scattered atheromatous calcifications are noted within the coronary arteries. Solid organs: Liver is normal in size. Sludge is layered within the gallbladder fundus. There is trace pericholecystic fat stranding. Pancreas is normal in contours. Spleen is normal in size. No adrenal nodules. Kidneys are normal in size, without hydronephrosis or nephrolithiasis. Peritoneum and bowel: Unenhanced bowel loops demonstrate normal wall thickness and caliber. The appendix is thin walled. There are extensive sigmoid diverticula. No evidence for diverticulitis. No free fluid or air. Nodes and vessels: No retroperitoneal or mesenteric adenopathy by size criteria. Aorta and inferior vena cava are normal in caliber. There are scattered atheromatous calcifications throughout the aorta and iliac arteries bilaterally. Bilateral iliac stents are noted. Atheromatous calcifications are present bilaterally within the renal arteries. Miscellaneous: No ventral hernias. A low-density 4.1 by 2.7 cm cyst is present within the subcutaneous fat overlying the sternum suggesting the presence of a large sebaceous cyst. PELVIS: Genitourinary: Bladder is decompressed and a Briceno catheter is present. Miscellaneous: No inguinal adenopathy. There are likely bilateral hydroceles. The left hydrocele appears large but is only partially characterized. Bones: No suspicious bony lesions. No vertebral body compression fractures. IMPRESSION: 1. Pericholecystic fat stranding which may be associated with acute cholecystitis. Right upper quadrant ultrasound recommended to evaluate for acute cholecystitis. 2. No intrahepatic biliary ductal dilatation. 3. Normal appendix. 4. Extensive sigmoid diverticulosis. No acute diverticulitis. 5. Probable bilateral hydroceles which are incompletely characterized. Testicular ultrasound recommended if clinically indicated to further characterize this finding. 6. Aortic , renal, and coronary artery atheromatous calcifications. Dictated by: Anamika Negron M.D. on 06/01/2020 at 12:07 Approved by: Anamika Negron M.D. on 06/01/2020 at 12:15
[2020-06-01] MEDS: LACTATED RINGERS 725 ML IV (11:05)
[2020-06-01 11:21] LABS: Ammonia (NH3) 9 umol/L (9-30)
[2020-06-01 11:22] LABS: Alanine Aminotransferase 274 IU/L (<50); Albumin 3.9 g/dL (3.5-5.0); Albumin Globulin Ratio 1.1 (1.0-2.8); Alkaline Phosphatase 350 U/L (38-126); Aspartate Aminotransferase 264 IU/L (17-59); BUN Creatinine Ratio 12.8 (6-22); Bilirubin Total 6.2 mg/dL (0.2-1.3); Blood Urea Nitrogen 83 mg/dL (9-20); Calcium 7.2 mg/dL (8.4-10.2); Carbon Dioxide 15 mmol/L (22-32); Chloride 95 mmol/L (98-107); Estimated Glomerular Filt Rate 8.5 mL/min (>60); Globulin 3.7 g/dL (1.7-4.1); Glucose 164 mg/dL (80-110); HEMOLYSIS 42 (0-50); INR 1.2 (0.9-1.3); Prothrombin Time 14.1 SECONDS (10.1-12.7); Sodium 134 mmol/L (137-145); Total Protein 7.6 g/dL (6.3-8.2)
[2020-06-01 11:24] LABS: Potassium 5.3 mmol/L (3.4-5.1)
[2020-06-01 11:25] LABS: PTT Partial Thromboplastin Tim 29 SECONDS (26.4-36.2)
[2020-06-01 11:27] LABS: Add Manual Diff / Slide Review NO; Basophils Absolute Auto 0 /uL (0-100); Basophils Percent Auto 0.4 % (0-2); Eosinophils Absolute Auto 500 /uL (0-450); Eosinophils Percent Auto 3.9 % (2-4); Hematocrit 42.3 % (41-53); Hemoglobin 14.1 g/dL (13.5-17.5); Lymphocytes Absolute Auto 1000 /uL (1100-4500); Lymphocytes Percent Auto 7.6 % (25-40); Mean Corpuscular HGB Conc 33.3 % (30-36); Mean Corpuscular Hemoglobin 30.8 PG (26-34); Mean Corpuscular Volume 92.7 fL (80-100); Monocytes Absolute Auto 700 /uL (0-900); Monocytes Percent Auto 5.7 % (3-14); Neutrophils Absolute Auto 10600 /uL (1500-7000); Platelet Count 183 X10^3/uL (150-400); Red Blood Cell Count 4.57 X10^6/uL (4.5-5.9); Red Cell Distribution Width 15.9 % (11.6-14.8); White Blood Cell Count 12.9 X10^3/uL (4.5-11.0)
[2020-06-01 11:32] LABS: Lipase 386 U/L (23-300)
[2020-06-01 11:33] LABS: Creatine Kinase 1261 U/L (55-170)
[2020-06-01 11:34] LABS: Lactate (Lactic Acid) 5.5 mmol/L (0.7-2.1)
[2020-06-01 11:37] LABS: Procalcitonin 191.29 ng/mL (<0.5)
--- NOTE | 2020-06-01 11:37 | DI.US.S_ITS ---
PROCEDURE: US ABDOMEN LIMITED INDICATIONS: JAUNDICE TECHNIQUE: Real-time scanning was performed of the abdominal and retroperitoneal organs, with image documentation. COMPARISON: [facility], US, US ABDOMEN LIMITED, 05/30/2020, 0:30. FINDINGS: Liver: Liver is normal in size and homogeneous in echotexture. Gallbladder: Sludge is layered within the gallbladder fundus. Focal regions of the gallbladder wall are thickened up to 5 mm in diameter. No pericholecystic fluid. No sonographic Cochran's sign. Biliary ducts: Intrahepatic bile ducts are non-dilated. Extrahepatic bile duct caliber measures 8 mm. Normal is 6-7 mm or less in diameter, or 10 mm or less post-cholecystectomy. IMPRESSION: Gallbladder sludge in the fundus. Focal regions of gallbladder wall thickening. Pericholecystic fat stranding was visualized on the comparison CT. Findings may represent early acute cholecystitis. No definite findings to suggest choledocholithiasis. Dictated by: Anamika Negron M.D. on 06/01/2020 at 13:07 Approved by: Anamika Negron M.D. on 06/01/2020 at 13:09
[2020-06-01 11:38] LABS: Neutrophils Percent Auto 82.4 % (50-75)
[2020-06-01 11:46] LABS: NT-proBNP (BNP-Adult 18+) 10700 pg/mL (<125); Troponin I 0.068 ng/mL (0.01-0.034)
[2020-06-01 11:48] LABS: CKMB % Relative Index 1.1 % (1.5-5.0)
[2020-06-01 11:57] LABS: COVID19 -Nasal RAPID Negative (Negative)
[2020-06-01 12:29] LABS: Appearance Urine UA CLOUDY; Bilirubin Urine UA 2+ (NEGATIVE); Color Urine UA YELLOW; Glucose Urine UA TRACE g/dL (Negative); Ketones Urine UA TRACE (NEGATIVE); Leukocyte Esterase Urine UA TRACE (NEGATIVE); Nitrite Urine UA POSITIVE (Negative); Occult Blood Urine UA 3+ (Negative); Protein Urine UA 2+ (Negative)
[2020-06-01] MEDS: PIPERACILLIN-TAZO 2.25 GM/50 ML FROZ.PIGGY IV (12:33)
[2020-06-01 12:41] LABS: Amorphous Sediment Urine 2+; Bacteria Urine Many (>30); Culture Indicated Urine Specimen Cultured; Ictotest Urine Positive (Negative); Mucus Urine 2+ (Negative); RBC Urine 5-10/HPF (0-5/HPF); Squamous Epithelial Cell Urine 1-5 /HPF (0-5/HPF); WBC Urine 10-30/HPF (0-5/HPF)
[2020-06-01 13:00] LABS: Reflexed Lactate in 2 Hours Y
[2020-06-01] MEDS: NOREPINEPHRINE 4 MG in DEXTROSE 5% IN WATER 250 ML 7.62 ML IV (13:15)
[2020-06-01 13:17] LABS: Magnesium 2.6 mg/dL (1.6-2.3)
[2020-06-01] MEDS: fentaNYL 100 MCG/2 ML INJ 25 MCG IV (13:17)
[2020-06-01] MEDS: CALCIUM GLUCONATE 4.65 MEQ in SODIUM CHLORIDE 0.9% 50 ML 180 ML IV (13:18)
--- NOTE | 2020-06-01 13:36 | DI.RAD.S_ITS ---
PROCEDURE: XR CHEST 1V INDICATIONS: post central insertion TECHNIQUE: One view of the chest was acquired. COMPARISON: [facility], CT, CT ABDOMEN PELVIS WO CON, 06/01/2020, 11:39. [facility], CR, XR CHEST 1V, 06/01/2020, 11:13. FINDINGS: Surgical changes and devices: There is a new central venous catheter, the tip of which is projected over the right atrium. Patient is status post median sternotomy and CABG. Lungs and pleura: Right pulmonary radiopacity redemonstrated. The lungs are otherwise clear. No pleural effusion or pneumothorax. Mediastinum: Mediastinal contours appear normal. Heart size is normal. Bones and chest wall: No suspicious bony lesions. Overlying soft tissues appear unremarkable. IMPRESSION: Right central venous catheter projected over the right atrium. Consider retracting the catheter approximately with the tip at the cavoatrial junction. Dictated by: Anamika Negron M.D. on 06/01/2020 at 13:58 Approved by: Anamika Negron M.D. on 06/01/2020 at 13:59
[2020-06-01] MEDS: LACTATED RINGERS 500 ML 1000 ML IV (14:10)
[2020-06-01 14:15] LABS: Lactate 2HR (Lactic Acid Rflx) 1.9 mmol/L (0.7-2.1)
--- NOTE | 2020-06-01 14:22 | DI.RAD.S_ITS ---
PROCEDURE: XR CHEST 1V INDICATIONS: central line placement TECHNIQUE: One view of the chest was acquired. COMPARISON: [facility], , XR CHEST 1V, 06/01/2020, 13:39. FINDINGS: Surgical changes and devices: The central venous catheter has been retracted and now is projected over the cavoatrial junction. Sternotomy wires and CABG redemonstrated. Lungs and pleura: Lungs are clear. No pleural effusions or pneumothorax. Mediastinum: Mediastinal contours appear normal. Heart size is normal. Bones and chest wall: No suspicious bony lesions. Overlying soft tissues appear unremarkable. IMPRESSION: Appropriate repositioning of the central venous catheter. Dictated by: Anamika Negron M.D. on 06/01/2020 at 14:42 Approved by: Anamika Negron M.D. on 06/01/2020 at 14:42
--- NOTE | 2020-06-01 14:50 | PC.NURSE ---
Arrived to Er with a smith cath. that was placed on Tuesday for urinary retention. ( pt was in Er on 05/30/20). today arrived to Er jaundiced, hypotension, oliguria, weak. inserted a cvp with dr. Tolliver. levophed gtt is max'd at 12 mcg/min or 45 ml. hour. pt is currently receiving a fluid bolus. Dr. Tolliver aware of the above.
--- NOTE | 2020-06-01 14:57 | PC.NURSE ---
Dr. Tolliver aware of poor pleth . placed on oxygen at 4 l nc for pt. comfort.
--- NOTE | 2020-06-01 15:06 | PC.NURSE ---
all 3 lumens of central line have positive blood return
[2020-06-01] MEDS: VASOPRESSIN 40 UNIT in SODIUM CHLORIDE 0.9% 100 ML IV (15:09)
[2020-06-01] MEDS: LACTATED RINGERS 1,000 ML 300 ML IV (15:33)
--- NOTE | 2020-06-01 15:47 | PC.NURSE ---
pt continues with a poor pleth. reports metal in his left eye. wears glasses. pt is arguing with daughter, Nahed and more awake. jaundice is improving. pt reports he only had 800 cc urine output in 2 days with smith cath. pt had only 25 cc urine output in bag upon arrival to ER-dark bile color. pt had no urine output since arrival to ER. Dr. Tolliver aware of the above and pt's entire ER stay.
--- NOTE | 2020-06-01 16:35 | PC.NURSE ---
Ivf's were placed going through the warmer until pt. left for [place].
== END 2020-06-01 16:38 | disposition short-term general hospital (02) ==
PROVIDERS: Emergency Provider Emergency Medicine; PCP Family Medicine
DX: N19 Unspecified kidney failure (principal); R65.21 Severe sepsis with septic shock; K81.0 Acute cholecystitis; E86.0 Dehydration; N40.0 Benign prostatic hyperplasia without lower urinary tract symptoms
CPT/HCPCS: 36415; 36573; 71045; 74176; 76705; 80053; 81001; 82140; 82550; 82553; 83605; 83690; 83735; 83880; 84145; 84484; 85025; 85610; 85730; 87040; 87086; 87635; 93005; 93010; 96361; 96365; 96366; 96367; 96368; 96375; 99285; 99291; 99292; J0610; J2543; J3010